=== PATIENT | female | born 1960 | race Two or more races ===

== ENCOUNTER 2024-06-19 06:49 | Day surgery (SDC) | payer BC, SELFPAY ==
[2024-06-18 11:31] VITALS: BMI 28.5
[2024-06-19 07:29] VITALS: BP 160/78; PULSE 91; RESP 18; TEMP 36.4; O2SAT 98
--- NOTE | 2024-06-19 07:41 | EXP.ANES.CKL ---
[facility] Disclaimer: The information contained in this section may have been updated after the patient was seen, as this information can be updated by other users. Medical History (Updated 06/19/24 @ 07:37 by Moraima Zendejas RN) H/O esophageal spasm Anxiety Stutter Fibromyalgia Surgical History (Updated 06/19/24 @ 07:34 by Moraima Zendejas RN) Hx laparoscopic cholecystectomy H/O spinal fusion H/O colonoscopy H/O lumpectomy History of bunionectomy History of esophagogastroduodenoscopy (EGD) Social History (Updated 06/19/24 @ 07:34 by Moraima Zendejas RN) Smoking Status: Never smoker alcohol intake: never substance use type: denies use current occupational status: employed Travel in the last 8 weeks: None [facility] Anesthesia Checklist Patient Identification Patient Identification: Arm Band, Family and Verbal (Name & ) Structural Data Admitted From: Home Planned Operative Procedure/s: EGD Consent for Planned Operative Procedure(s) Verified: Yes Verified Documents: Surgical Consent and History and Physical NPO Status Verified Time NPO: 21:00 Additional verifications Patient : No (post-menopausal) Anesthesia Reactions: No Cardiovascular Assessment Heart Sounds: S1 & S2 Pulse Rhythm: Irregular Peripheral Edema: No Airway Assessment Mallampati Score:: Class III C-Spine Mobility Assessed: Yes (FROM demonstarted) TMJ Mobility Assessed: Yes Dentition: Good Dentition (Nothing loose per pt.) Neurological Assessment Level of Consciousness: Awake, Alert, Appropriate and Follows Commands Hx Seizures: No Numbness or tingling in extremities: No Anesthesia Plan Anesthesia Risk discussed: Yes Anesthesia Plan: Verified ASA Class: III Anesthesia Type: MAC
[2024-06-19 08:05] VITALS: O2SAT 100
--- NOTE | 2024-06-19 08:09 | P.HP_ITS ---
History of Present Illness *Admission Date: 06/19/24 *Reason for visit:: Dyspepsia/esophageal spasm/dyskinesia *History of present illness: Mrs. Grewal is a 63-year-old female who is here for diagnostic upper endoscopy secondary to ongoing dyspepsia, esophageal dyskinesia with esophageal spasm. Her symptoms are alleviated with Iberogast and lorazepam. She has had some increase in her acid reflux recently which she attributes to NSAIDs.. The examination is deemed medically necessary for upper endoscopy. The patient has been seen, interviewed and examined prior to the procedure by both myself and the anesthesia provider. [facility] Disclaimer: The information contained in this section may have been updated after the patient was seen, as this information can be updated by other users. Medical History (Updated 06/19/24 @ 08:10 by Stephen Dover II, MD) H/O esophageal spasm Anxiety Stutter Fibromyalgia Surgical History (Updated 06/19/24 @ 07:34 by Moraima Zendejas RN) Hx laparoscopic cholecystectomy H/O spinal fusion H/O colonoscopy H/O lumpectomy History of bunionectomy History of esophagogastroduodenoscopy (EGD) Social History (Updated 06/19/24 @ 07:42 by Kathleen Ashley CRNA) Smoking Status: Never smoker alcohol intake: never substance use type: denies use current occupational status: employed Travel in the last 8 weeks: None Have you lived/traveled outside US in past 30 days?: No Contact w/someone who lives/traveled outside US past 30 days?: No Exposure to someone with infectious disease in past 14 days?: No Do you have a fever (greater than 100.4 F or 38 C)?: No Have you tested positive for COVID-19: No Exposed to someone with COVID-19 in past 14 days?: No Do you have a sore throat?: No Do you have a cough?: No Do you have any weakness?: No Do you have any diarrhea?: No Are you experiencing any unusual bleeding?: No Do you have any muscle aches/pain?: No Do you have any abdominal pain?: No Are you experiencing loss of taste or smell?: No Review of Systems Review of Systems Review of systems (narrative): Negative *Cardiovascular Comments: Negative *Gastrointestinal Comments: Negative *Genitourinary Comments: Negative *Musculoskeletal Comments: Negative *Neurologic Comments: Negative Meds Home Medications and Allergies Home Medications ?Medication ?Instructions ?Recorded ?Confirmed ?Type lorazepam 1 mg tablet 1 mg PO BID PRN Esophageal spasm 03/31/24 06/19/24 Rx #60 tabs aspirin 81 mg tablet,delayed 81 mg PO DAILY 05/22/24 06/19/24 History release (Adult Aspirin Regimen) azelastine 137 mcg (0.1 %) nasal 2 spray intranasal DAILY 05/22/24 06/19/24 History spray cyclobenzaprine 10 mg tablet 10 mg PO DAILY 05/22/24 06/19/24 History duloxetine 60 mg capsule,delayed 120 mg PO DAILY 05/22/24 06/19/24 History release glycopyrrolate 2 mg tablet 2 mg PO DAILY 05/22/24 06/19/24 History memantine 10 mg tablet 10 mg PO BID 05/22/24 06/19/24 History methylcellulose (with sugar) oral 1 tbsp PO DAILY 05/22/24 06/19/24 History powder (Citrucel (sucrose) oral powder) oxycodone-acetaminophen 7.5 mg-325 1 tab PO TID 05/22/24 06/19/24 History mg tablet tramadol 50 mg tablet 50 mg PO NEEDED PRN Pain 05/22/24 06/19/24 History trazodone 50 mg tablet 50 mg PO DAILY 05/22/24 06/19/24 History propranolol 10 mg tablet 10 mg PO NEEDED PRN stutter 06/19/24 06/19/24 History New Prescriptions to Start Prescriptions: Allergies Allergy/AdvReac Type Severity Reaction Status Date / Time No Known Allergies Allergy Verified 06/19/24 08:00 Exam Data for Last 24 hours Vital signs and Labs for Last 24 Hours: Temp Pulse Resp BP Pulse Ox O2 Del Method O2 Flow Rate 97.5 F L 91 H 18 160/78 H 98 Nasal Cannula 5 06/19/24 07:29 06/19/24 07:29 06/19/24 07:29 06/19/24 07:29 06/19/24 07:29 06/19/24 08:05 06/19/24 08:05 I & O for Last 24 hours: Intake & Output 06/16/24 06/17/24 06/18/24 06/19/24 23:59 23:59 23:59 23:59 Weight 164 lb *Routine HEENT Exam Head: Present normocephalic Eye: Present EOMI and PERRL ENT: Present mucous membranes moist *Routine Neck Exam Neck: Present supple *Routine Respiratory Exam Respiratory: Present CTA bilaterally *Routine Cardiovascular Exam Cardiovascular: Present RRR *Routine Abdominal Exam Abdominal: Present soft and normoactive bowel sounds; Absent tenderness *Routine Rectal Exam Rectal:: deferred *Routine Genitalia Exam Genitalia:: deferred *Routine Extremities Exam Extremities: Absent cyanosis, clubbing or edema *Routine Skin Exam Skin: Present warm; Absent rash *Routine Neurological Exam Neurological: Present alert and oriented X3 Assessment and Plan *Assessment and plan (1) Esophageal spasm: Status: Acute Category: Medical Code(s): K22.4 - Dyskinesia of esophagus (2) Esophageal dyskinesia: Status: Acute Category: Medical Code(s): K22.4 - Dyskinesia of esophagus (3) Epigastric pain: Status: Acute Category: Medical Code(s): R10.13 - Epigastric pain (4) Acid reflux: Status: Acute Category: Medical Code(s): K21.9 - Gastro-esophageal reflux disease without esophagitis (5) Functional dyspepsia: Status: Acute Category: Medical Code(s): K30 - Functional dyspepsia Plan A/P: 1. Epigastric pain with history of esophageal spasm/dyskinesia is the preprocedural diagnosis. The patient will be anesthetized/sedated using MAC se dation. The patient has been seen and examined. Cardiac and lung assessment prior to the examination is stable. Proceed with planned EGD
--- NOTE | 2024-06-19 08:11 | P.PCN_ITS ---
[facility] Procedure Note Date: 06/19/24 Time: 08:20 Procedure Note:: Upper Endoscopy Procedure Report: Esophagogastroduodenoscopy with cold biopsies and TTS balloon dilation Endoscopost: Stephen Dover II, MD Referring Physician: EVERETT Buck Date of Procedure: June 19, 2024 Equipment: Olympus GIF 190 standard upper endoscope Sedation: MAC sedation Indications: Mrs. Grewal is a 63-year-old female with a long history of esophageal spasm/esophageal dyskinesia. Her symptoms are alleviated with Iberogast and lorazepam. She does take the lorazepam a couple of times weekly. She has used FDgard and sucralfate as needed. The patient does report some increase in her reflux. She reports no bloating or belching. She states that her symptoms do not radiate to the back. She does report regular bowel function and Citrucel has improved bowel evacuation. She does take oxycodone and tramadol for her chronic fibromyalgia. She uses ibuprofen about once a week. She did have panendoscopy with me at [facility] 5 years ago. Procedure: Prior to the procedure, a history and physical exam was performed, and patient's medications and allergies were reviewed. The risks, benefits and alternatives of the sedation and procedure were discussed with the patient. All questions were answered and informed consent was obtained. The patient was brought to the procedure room. Patient identification and proposed procedure were verified by the physician and the nurse. The patient was placed in a left lateral decubitus position and the scope was passed under direct vision. Throughout the procedure, the patient's blood pressure, pulse, and oxygen saturations were m onitored continuously. The upper GI endoscopy was accomplished without difficulty. The patient tolerated the procedure well. Findings: The scope was passed directly into the upper esophagus and advanced to the third portion of the duodenum. The post bulbar duodenum and duodenal bulb were normal with normal mucosa and conniventes. The scope was withdrawn through a normal duodenal bulb and spastic pylorus into the stomach. There was linear reactive gastropathy of the antrum and some evident pylorospasm. Biopsies were taken from the antrum. The remainder of the body and fundus of the stomach were normal. Upon retroflexion there was no hiatal hernia. The scope was then withdrawn into the esophagus. There was no evidence of reflux esophagitis. There were tertiary contractions and evidence of mild esophageal dysmotility. There was no corrugation or stricturing. The entire esophagus was dilated to 60 [place]/20 mm with a TTS hydrostatic balloon. There was mild resistance at the c ricopharyngeus. The remainder of the esophageal mucosa was normal. Impression: 1. Nonerosive GERD with mild esophageal dysmotility and cricopharyngeal spasm 2. Mild linear reactive gastropathy with pylorospasm Plan: We will discuss additional treatment options. I would consider additional treatment with neuromodulation. Notable primarily was the pylorospasm. I would consider Botox injection into the pylorus if patient remains symptomatic.
[2024-06-19 08:24] VITALS: BP 108/70; PULSE 80; RESP 16; TEMP 36.4; O2SAT 95
[2024-06-19 08:34] VITALS: BP 110/73; PULSE 80; RESP 16; O2SAT 96
[2024-06-19 08:44] VITALS: BP 121/69; PULSE 78; RESP 16; O2SAT 95
[2024-06-19 09:04] VITALS: BP 118/72; PULSE 80; RESP 17; O2SAT 96
== END 2024-06-19 09:25 | disposition home or self-care (01) ==
PROVIDERS: PCP Nurse Practitioner Family; Visit Provider Internal Medicine Gastroenterology
PROC: 0DJ08ZZ Inspection of Upper Intestinal Tract, Via Natural or Artificial Opening Endoscopic (ICD-10-PCS; CPT 43239; principal; 2024-06-19 08:30)
DX: K22.4 Dyskinesia of esophagus (principal); K21.9 Gastro-esophageal reflux disease without esophagitis; K30 Functional dyspepsia; K31.3 Pylorospasm, not elsewhere classified; K31.9 Disease of stomach and duodenum, unspecified; J39.2 Other diseases of pharynx
CPT/HCPCS: 43239; 43249; C1726

== ENCOUNTER 2024-07-17 13:28 | Outpatient (CLI) | payer BC, SELFPAY ==
--- NOTE | 2024-07-17 13:36 | CT_ITS ---
FINAL REPORT TECHNIQUE: After the administration of intravenous contrast, axial images were obtained through the abdomen and pelvis by computed tomography. The study was performed with techniques to keep radiation dose as low as reasonably achievable, (ALARA). Individual dose reduction techniques using automated exposure control or adjustment of mA and/or kV according to the patient's size were employed. CLINICAL HISTORY: 1 week RLQ/LLQ pain/diarrhea FINDINGS: Abdomen: The lung bases are clear. The liver parenchyma is homogeneous. The gallbladder is absent. There is moderate intra and extrahepatic biliary ductal dilatation. The common duct measures up to 13 mm in diameter. The spleen, pancreas, adrenals and kidneys appear unremarkable. The aorta is normal in caliber. There is no free fluid or adenopathy. Pelvis: The appendix is normal. The uterus is present. There are calcified phleboliths in the floor of the pelvis. The urinary bladder is incompletely distended. There are small scattered diverticuli of the descending and sigmoid colon. There is prominent mucosa of the sigmoid colon without definite pericolonic inflammation, may be related to mild sigmoid diverticulitis. There is no free fluid or adenopathy. IMPRESSION: Distention of the common duct, probably related to prior cholecystectomy. No evident choledocholithiasis. Prominent mucosa of the sigmoid colon, may be related to mild sigmoid diverticulitis. Reviewed, Interpreted and Dictated by Chase Vargas MD Transcribed by Melany Urias Authenticated and [facility]
[2024-07-17 13:55] LABS: Blood Urea Nitrogen 12 mg/dl (7-17); Estimated Glomerular Filt Rate 124 ml/min (>60); GFR (African American) 150 ML/MIN (>60)
[2024-07-17] MEDS: IOPAMIDOL-370 (76%);100ML BOTTLE 75 ML IV (14:11)
[2024-07-17] MEDS: SODIUM CHLORIDE 0.9% 10ML SYR (RAD ONLY) 10 ML IV (14:11)
== END 2024-07-17 23:59 | disposition home or self-care (01) ==
LOC: RAD 13:30
PROVIDERS: PCP Nurse Practitioner Family; Visit Provider Nurse Practitioner Family
DX: R10.31 Right lower quadrant pain (principal); R10.32 Left lower quadrant pain; R19.7 Diarrhea, unspecified
CPT/HCPCS: 36415; 74177; 82565; 84520; Q9967

== ENCOUNTER 2024-07-22 06:42 | Outpatient (CLI) | payer BC, SELFPAY ==
[2024-07-22 07:07] LABS: Adenovirus F 40/41, stool Not Detected (NotDetected); Astrovirus Not Detected (NotDetected); Campylobacter Not Detected (NotDetected); Clostridium Difficile A/B, PCR Not Detected (NotDetected); Cryptosporidium Not Detected (NotDetected); Cyclospora Cayetanesis Not Detected (NotDetected); Entamoeba histolytica Not Detected (NotDetected); Enteroaggregative E coli Not Detected (NotDetected); Enteropathogenic E coli Not Detected (NotDetected); Enterotoxigenic E coli Not Detected (NotDetected); Giardia lamblia Not Detected (NotDetected); Norovirus Not Detected (NotDetected); Plesimonas Shigalloides, PCR Not Detected (NotDetected); Rotavirus A Not Detected (NotDetected); Salmonella, PCR Not Detected (NotDetected); Sapovirus Not Detected (NotDetected); Shiga-like toxin E coli Not Detected (NotDetected); Shigella Enterovasive E coli Not Detected (NotDetected); Vibrio Cholerae Not Detected (NotDetected); Vibrio, PCR Not Detected (NotDetected); Yersinia Entercolitica, PCR Not Detected (NotDetected)
== END 2024-07-22 23:59 | disposition home or self-care (01) ==
LOC: LAB 06:44
PROVIDERS: PCP Nurse Practitioner Family; Visit Provider Internal Medicine Gastroenterology
DX: R19.7 Diarrhea, unspecified (principal)
CPT/HCPCS: 87506

== ENCOUNTER 2024-12-18 06:12 | Day surgery (SDC) | payer MEDICARE, SELFPAY ==
[2024-12-16 15:52] VITALS: BMI 25.7
[2024-12-18 06:34] VITALS: BP 113/68; PULSE 76; RESP 18; TEMP 36.5; O2SAT 98
[2024-12-18] MEDS: LACTATED RINGERS 1000ML 1,000 ML 50 ML IV (06:51)
--- NOTE | 2024-12-18 07:05 | EXP.ANES.CKL ---
[facility] Disclaimer: The information contained in this section may have been updated after the patient was seen, as this information can be updated by other users. Medical History History of diverticulitis H/O esophageal spasm Anxiety Stutter Fibromyalgia Surgical History History of tonsillectomy Hx laparoscopic cholecystectomy H/O spinal fusion H/O colonoscopy H/O lumpectomy History of bunionectomy History of esophagogastroduodenoscopy (EGD) Family History Other Family history of myocardial infarction Social History Smoking Status: Never smoker alcohol intake: never substance use type: denies use current occupational status: retired Travel in the last 8 weeks?: None caffeine: Yes Have you lived/traveled outside US in past 30 days?: Yes Contact w/someone who lives/traveled outside US past 30 days?: No Exposure to someone with infectious disease in past 14 days?: No Do you have a fever (greater than 100.4 F or 38 C)?: No Have you tested positive for COVID-19?: No Exposed to someone with COVID-19 in past 14 days?: No Do you have a sore throat?: No Do you have a cough?: No Do you have any weakness?: No Are you experiencing any nausea/vomitting?: No Do you have any diarrhea?: No Are you experiencing any unusual bleeding?: No Do you have any muscle aches/pain?: No Do you have any abdominal pain?: No Are you experiencing loss of taste or smell?: No [facility] Anesthesia Checklist Patient Identification Patient Identification: Arm Band and Verbal (Name & ) Structural Data Admitted From: Home Planned Operative Procedure/s: colonscopy Consent for Planned Operative Procedure(s) Verified: Yes Verified Documents: Surgical Consent and History and Physical NPO Status Verified Time NPO: 00:00 Additional verifications Anesthesia Reactions: No Airway Assessment Mallampati Score:: Class II Dentition: Good Dentition Neurological Assessment Level of Consciousness: Awake, Alert and Appropriate Hx Seizures: No Numbness or tingling in extremities: No Anesthesia Plan Anesthesia Risk discussed: Yes Anesthesia Plan: Verified ASA Class: II Anesthesia Type: MAC
--- NOTE | 2024-12-18 07:20 | EXP.HP ---
History of Present Illness *Admission Date: 12/18/24 *Reason for visit:: Screening colonoscopy *History of present illness: Mrs. Grewal is a 64-year-old female who is here for screening colonoscopy. Her last colonoscopy was more than a decade ago. The examination is deemed medically necessary for screening colonoscopy. The patient has been seen, interviewed and examined prior to the procedure by both myself and the anesthesia provider. [facility] Disclaimer: The information contained in this section may have been updated after the patient was seen, as this information can be updated by other users. Medical History History of diverticulitis H/O esophageal spasm Anxiety Stutter Fibromyalgia Surgical History History of tonsillectomy Hx laparoscopic cholecystectomy H/O spinal fusion H/O colonoscopy H/O lumpectomy History of bunionectomy History of esophagogastroduodenoscopy (EGD) Family History Other Family history of myocardial infarction Social History Smoking Status: Never smoker alcohol intake: never substance use type: denies use current occupational status: retired Travel in the last 8 weeks?: None caffeine: Yes Have you lived/traveled outside US in past 30 days?: Yes Contact w/someone who lives/traveled outside US past 30 days?: No Exposure to someone with infectious disease in past 14 days?: No Do you have a fever (greater than 100.4 F or 38 C)?: No Have you tested positive for COVID-19?: No Exposed to someone with COVID-19 in past 14 days?: No Do you have a sore throat?: No Do you have a cough?: No Do you have any weakness?: No Are you experiencing any nausea/vomitting?: No Do you have any diarrhea?: No Are you experiencing any unusual bleeding?: No Do you have any muscle aches/pain?: No Do you have any abdominal pain?: No Are you experiencing loss of taste or smell?: No Review of Systems Review of Systems Review of systems (narrative): Negative *Cardiovascular Comments: Negative *Gastrointestinal Comments: Negative *Genitourinary Comments: Negative *Musculoskeletal Comments: Negative *Neurologic Comments: Negative Meds Home Medications and Allergies Home Medications ?Medication ?Instructions ?Recorded ?Confirmed ?Type aspirin 81 mg tablet,delayed 81 mg PO DAILY 05/22/24 12/18/24 History release (Adult Aspirin Regimen) azelastine 137 mcg (0.1 %) nasal 2 spray intranasal DAILY 05/22/24 12/18/24 History spray duloxetine 60 mg capsule,delayed 120 mg PO DAILY 05/22/24 12/18/24 History release oxycodone-acetaminophen 7.5 mg-325 1 tab PO TID 05/22/24 12/18/24 History mg tablet tramadol 50 mg tablet 50 mg PO NEEDED PRN Pain 05/22/24 12/18/24 History trazodone 50 mg tablet 50 mg PO DAILY 05/22/24 12/18/24 History buspirone 10 mg tablet 10 mg PO BID #60 tabs 06/19/24 12/18/24 Rx propranolol 10 mg tablet 10 mg PO NEEDED PRN stutter 06/19/24 12/18/24 History dicyclomine 10 mg capsule 10 mg PO BID #60 caps 07/23/24 12/18/24 Rx calcium polycarbophil 625 mg 1,250 mg PO DAILY 08/14/24 12/18/24 History tablet (FiberCon) omeprazole 20 mg capsule,delayed 20 mg PO DAILY #90 caps 08/14/24 12/18/24 Rx release Bifidobacterium infantis 4 mg 4 mg PO HS 09/22/24 12/18/24 History capsule (Align (B.infantis)) lorazepam 1 mg tablet 1 mg PO BID PRN Abdominal 11/17/24 12/18/24 Rx pain/chest pain #60 tabs sodium,potassium,mag sulfates 17.5 See Rx Instructions PO .COMPLEX 12/01/24 12/18/24 Rx gram-3.13 gram-1.6 gram oral soln #354 mL (Suprep Bowel Prep Kit) New Prescriptions to Start Prescriptions: Allergies Allergy/AdvReac Type Severity Reaction Status Date / Time No Known Allergies Allergy Verified 12/18/24 06:30 Exam Data for Last 24 hours Vital signs and Labs for Last 24 Hours: Temp Pulse Resp BP Pulse Ox O2 Del Method 97.7 F 76 18 113/68 98 Room Air 12/18/24 06:34 12/18/24 06:34 12/18/24 06:34 12/18/24 06:34 12/18/24 06:34 12/18/24 06:34 I & O for Last 24 hours: Intake & Output 12/15/24 12/16/24 12/17/24 12/18/24 23:59 23:59 23:59 23:59 Weight 150 lb *Routine HEENT Exam Head: Present normocephalic Eye: Present EOMI and PERRL ENT: Present mucous membranes moist *Routine Neck Exam Neck: Present supple *Routine Respiratory Exam Respiratory: Present CTA bilaterally *Routine Cardiovascular Exam Cardiovascular: Present RRR *Routine Abdominal Exam Abdominal: Present soft and normoactive bowel sounds; Absent tenderness *Routine Rectal Exam Rectal:: deferred *Routine Genitalia Exam Genitalia:: deferred *Routine Extremities Exam Extremities: Absent cyanosis, clubbing or edema *Routine Skin Exam Skin: Present warm; Absent rash *Routine Neurological Exam Neurological: Present alert and oriented X3 Assessment and Plan *Assessment and plan (1) Screening for colon cancer: Status: Acute Category: Medical Code(s): Z12.11 - Encounter for screening for malignant neoplasm of colon Plan A/P: 1. Screening for colon cancer is the preprocedural diagnosis. The patient will be anesthetized/sedated using MAC sedation. The patient has been seen and examined. Cardiac and lung assessment prior to the examination is stable. Proceed with planned screening colonoscopy.
--- NOTE | 2024-12-18 07:25 | P.PCN_ITS ---
[facility] Procedure Note Date: 12/18/24 Time: 07:45 Procedure Note:: Colonoscopy Procedure Report: Colonoscopy Endoscopist: Stephen Dover II, MD Referring physician: Pauline Haynes MD, [address] [facility], [place] [address] Date of Procedure: December 18, 2024 Equipment: Olympus 190 variable stiffness pediatric colonoscope Sedation: MAC sedation Indication: Mrs. Grewal is a 64-year-old female who is here for follow-up screening/surveillance colonoscopy. The patient does state that she had a colonoscopy years ago but there is no record of this at [facility] and I think it was done elsewhere with me in [place] or [place]. She reports no abdominal pain, weight loss, change in her bowel habits or rectal bleeding. She does have some functional dyspepsia. She did have acute diverticulitis in August 2024. This was treated with Cipro and Flagyl. The patient has been on dietary measures, probiotic (Align) and FiberCon. She reports no family history of colon cancer. Procedure: Prior to the procedure, a history and physical exam was performed, and patient's medications and allergies were reviewed. The risks, benefits and alternatives of the sedation and procedure were discussed with the patient. All questions were answered and informed consent was obtained. The patient was brought to the procedure room. Patient identification and proposed procedure were verified by the physician and the nurse. The patient was placed in a left lateral decubitus position and the scope was passed under direct vision. Throughout the procedure, the patient's blood pressure, pulse, and oxygen saturations were monitored continuously. The colonoscopy was accomplished without difficulty. The patient tolerated the procedure well. Findings: On digital rectal examination there was normal rectal tone. There were no external hemorrhoids. The colonoscope was introduced through the anal canal to the rectum and advanced to the cecum. The ileocecal valve and appendiceal orifice were identified. The scope was advanced a short distance into the ileum which appeared grossly normal. The scope was then withdrawn into the colon. The cecum, ascending and transverse colon and mucosa were grossly normal. There were scattered diverticuli throughout the descending and sigmoid colon (LEFT colon). The rectum itself was normal. Upon retroflexion within the rectum there were grade 1-2 internal hemorrhoids. The preparation was excellent throughout with [place] Preparation Score of 9. The cecal time was 10 minutes. Impression: 1. Left-sided diverticulosis 2. Grade 1-2 internal hemorrhoids Plan: The patient will not require surveillance colonoscopy again for 10 years by ACS guidelines. I would continue bulking fiber supplementation and dietary measures. I would avoid NSAIDs (with risk of recurrent diverticulitis).
[2024-12-18 07:43] VITALS: BP 93/44; PULSE 82; RESP 16; TEMP 36.2; O2SAT 97
[2024-12-18 07:53] VITALS: BP 113/51; PULSE 85; RESP 16; O2SAT 97
[2024-12-18 08:03] VITALS: BP 121/76; PULSE 74; RESP 16; O2SAT 97
[2024-12-18 08:13] VITALS: BP 144/72; PULSE 75; RESP 16; TEMP 36.2; O2SAT 97
== END 2024-12-18 08:30 | disposition home or self-care (01) ==
PROVIDERS: PCP Family Medicine; Visit Provider Internal Medicine Gastroenterology
PROC: 0DJD8ZZ Inspection of Lower Intestinal Tract, Via Natural or Artificial Opening Endoscopic (ICD-10-PCS; CPT 45378; principal; 2024-12-18 07:30)
DX: Z12.11 Encounter for screening for malignant neoplasm of colon (principal); K57.30 Diverticulosis of large intestine without perforation or abscess without bleeding; K64.0 First degree hemorrhoids; F41.9 Anxiety disorder, unspecified; K64.1 Second degree hemorrhoids; M79.7 Fibromyalgia; Z87.19 Personal history of other diseases of the digestive system; Z90.49 Acquired absence of other specified parts of digestive tract; Z98.890 Other specified postprocedural states; Z79.899 Other long term (current) drug therapy
CPT/HCPCS: G0121; J2003; J2704; J7120

== ENCOUNTER 2025-05-29 07:29 | Outpatient (CLI) | payer MEDICARE, SELFPAY ==
--- OUTSIDE RECORDS SUMMARY | 2025-04-06 11:00 | XMS_ITS | Encounter Summary ---
[facility] Address [address] [place] [address] Care Team Providers Care Irrigator Overhead Name Role Phone Pauline Haynes DO Primary Care Provider [phone] Reason for Referral * Diagnostic Imaging (Routine) - Authorized Specialty Diagnoses / Procedures Referred By Contac t Referred To Contact Diagnoses Screening for osteoporosis Postmenopausal Procedures DEXA Bone Density Axial Pauline Haynes DO [address] [place] [address] Phone: tel: fax: [facility] [address] [place] [id number] Phone: tel: fax: Referral ID Status Reason Start Date Expiration Date V isits Requested Visits Authorized [id number] Authorized 04/06/2025 07/06/2026 1 1 Reason for Visit * Reason Comments Welcome To Medicare Encounter Details Date Type Department Care Team (Late st Contact Info) Description 04/06/2025 12:00 PM EDT Office Visit [facility] [address] [place] [id number] Pauline Haynes DO [address] [place] [address] Medicare welcome exam (Primary Dx); Pap smear for cervical cancer screening; Fibromyalgia; Postmenopausal; Screening for osteoporosis; Vitamin D deficiency; Primary insomnia Social History Tobacco Use Types Packs/Day Years Used Date Smoking Tobacco: Never Smokeless Tobacco: Never Alcohol Use Standard Drinks/Week Comments Never 0 (1 standard drink = 0.6 oz pur e alcohol) PHQ-2 Answer Date Recorded Patient Health Questionnaire-2 Score 1 04/06/2025 Comments No Sex and Gender Information Value Date Recorded Sex Assigned at Female 12/29/2024 12:44 PM EDT Legal Sex Female 1:45 PM EDT Gender Identity Not on file Sexual Orientation Straight 12/29/2024 12 :44 PM EDT documented as of this encounter Last Filed Vital Signs Vital Sign Reading Time Taken Comments Blood Pressure 148/82 04/06/2025 11:52 AM EDT Pulse 96 04/06/2025 11:52 AM EDT Temperature - - Respiratory Rate 16 04/06/2025 11:52 AM EDT Oxygen Saturation - - Inhaled Oxygen Concentration - - Weight 66.2 kg (146 lb) 04/06/2025 11:52 AM EDT Height 160.4 cm (5' 3.15 ) 04/06/2025 11:52 AM E DT Body Mass Index 25.74 04/06/2025 11:52 AM EDT documented in this encounter Functional Status * PHQ-2/PHQ-9: Depression Screening Question Answer Date of Assessment Author Little interest or pleasure in doing things Several days 04/06/2025 11:58 AM EDT Gary Shine MA Feeling down, depressed, or hopeless Not at all 04/06/2025 11:58 AM EDT Malachi Shine MA Patient Health Questionnaire-2 Score 1 04/06/2025 11:58 AM EDT Gary Shine MA How difficult have these problems made it for you to do your work, take care of things at home, or get along with other people? Not difficult at all 04/06/2025 11:58 AM EDT Gary Shine MA documented as of this encounter Patient Instructions * Patient Instructions* Pauline Haynes DO - 04/06/2025 12:00 PM EDT Medicare Wellness Personal Prevention Plan of Service Date of Office Visit: Encounter Provider: Pauline Haynes DO Place of Service: [facility] Patient Name: Lupe Grewal : 1960 As part of the Medicare Wellness portion of your visit today, we are providing you with this personalized preventive plan of services (PPPS). This plan is based upon recommendations of the [place] Preventive Services Task Force (USPSTF) and the Advisory Committee on Immunization Practices (ACIP). This lists the preventive care services that should be considered, and provides dates of when you are due. Items listed as completed are up-to-date and do not require any further intervention. Health Maintenance Topic Date Due DXA SCAN Never done INFLUENZA VACCINE 01/09/2025 COVID-19 Vaccine (5 - Mixed Product risk season) 2025 LIPID PANEL 01/12/2026 MAMMOGRAM 03/24/2026 ANNUAL WELLNESS VISIT 04/06/2026 TDAP/TD VACCINES (2 - Td or Tdap) 01/01/2034 COLORECTAL CANCER SCREENING 01/05/2035 HEPATITIS C SCREENING Completed Pneumococcal Vaccine 50+ Completed ZOSTER VACCINE Completed No orders of the defined types were placed in this encounter. No follow-ups on file. * Attachments The following attachments cannot be sent through Care Everywhere. * Preventing Too Much Weight Gain in Adults ([place]) documented in this encounter Progress Notes * Pauline Haynes DO - 04/06/2025 12:00 PM EDT Images from the original note were not included. Subjective The ABCs of the Annual Wellness Visit Medicare Wellness Visit Lupe Grewla is a 64 y.o. patient who presents for a Medicare Wellness Visit. The following portions of the patient's history were reviewed and updated as appropriate: allergies, current medications, past family history, past medical history, past social history, past surgical history, and problem list. Compared to one year ago, the patient's physical health is better. Compared to one year ago, the patient's mental health is better. Recent Hospitalizations: She was not admitted to the hospital during the last year. Current Medical Providers: Patient Care Team: Pauline Haynes DO as PCP - General (Family Medicine) Jean Carlos Posada MD as Referring Physician (Anesthesiology) Kinsey, Janel Mcallister PA-C as Consulting Physician (Physician Sales Trader) Outpatient Medications Prior to Visit Medication Sig Dispense Refill Azelastine-Fluticasone 137-50 MCG/ACT suspension 1 spray by Each Nare route 2 (Two) Times a Day. 23g 0 busPIRone (BUSPAR) 10 MG tablet Take 1 tablet by mouth 2 (Two) Times a Day. cyclobenzaprine (FLEXERIL) 10 MG tablet dicyclomine (BENTYL) 10 MG capsule Take 1 capsule by mouth As Needed. donepezil (ARICEPT) 5 MG tablet Take 1 tablet by mouth Every Night. 90 tablet 1 DULoxetine (CYMBALTA) 60 MG capsule Take 1 capsule by mouth 2 (Two) Times a Day. 60 capsule 2 glycopyrrolate (ROBINUL) 2 MG tablet Take 1 tablet by mouth As Needed. LORazepam (ATIVAN) 1 MG tablet Take 1 tablet by mouth As Needed for Seizures. Misc Natural Products (IBEROGAST PO) Take 1 capsule by mouth 2 (Two) Times a Day. naloxone (Narcan) 4 MG/0.1ML nasal spray Administer 1 spray into the nostril(s) as directed by provider As Needed. oxyCODONE-acetaminophen (PERCOCET) 7.5-325 MG per tablet Take 1 tablet by mouth Every 6 (Six) HoursAs Needed. Probiotic Product (ALIGN PO) Take 1 capsule by mouth Daily. Progesterone (PROMETRIUM) 200 MG capsule Take 1 capsule by mouth Daily. propranolol (INDERAL) 10 MG tablet traMADol (ULTRAM) 50 MG tablet traZODone (DESYREL) 50 MG tablet Hormone Cream Base cream Apply 0.1 to 0.2 mL to clitoris prn intercourse (Patient not taking: Reported on 04/06/2025) 1 g 11 meloxicam (MOBIC) 15 MG tablet (Patient not taking: Reported on 04/06/2025) methylPREDNISolone (MEDROL) 4 MG dose pack Take as directed on package instructions. (Patient not taking: Reported on 04/06/2025) 21 tablet 0 No facility-administered medications prior to visit. Opioid medication/s are on active medication list. and I have evaluated her active treatment plan and pain score trends (see table). Vitals: 04/06/25 1152 PainSc: 3 PainLoc: Generalized I have reviewed the chart for potential of high risk medication and harmful drug interactions in the elderly. Aspirin is not on active medication list. Aspirin use is not indicated based on review of current medical condition/s. Risk of harm outweighs potential benefits. . There is no problem list on file for this patient. Advance Care Planning Advance Directive is not on file. ACP discussion was held with the patient during this visit. Patient has an advance directive (not in EMR), copy requested. Objective Vitals: 04/06/25 1152 BP: 148/82 Pulse: 96 Resp: 16 Weight: 66.2 kg (146 lb) Height: 160.4 cm (63.15 ) PainSc: 3 PainLoc: Generalized Estimated body mass index is 25.74 kg/m?? as calculated from the following: Height as of this encounter: 160.4 cm (63.15 ). Weight as of this encounter: 66.2 kg (146 lb). BMI is >= 25 and <30. (Overweight) The following options were offered after discussion;: information on healthy weight added to patient's after visit summary Gait and Balance Evaluation: Normal Does the patient have evidence of cognitive impairment? No Lab Results Component Value Date CHLPL 172 01/12/2025 TRIG 76 01/12/2025 HDL 52 01/12/2025 LDL 106 (H) 01/12/2025 VLDL 14 01/12/2025 HGBA1C 5.70 (H) 01/12/2025 Health Risk Assessment Smoking Status: Social History Tobacco Use Smoking Status Never Smokeless Tobacco Never Alcohol Consumption: Social History Substance and Sexual Activity Alcohol Use Never Fall Risk Screen STEADI Fall Risk Assessment was completed, and patient is at LOW risk for falls.Assessment completed on:04/06/2025 Depression Screening Little interest or pleasure in doing things? Several days Feeling down, depressed, or hopeless? Not at all PHQ-2 Total Score 1 Health Habits and Functional and Cognitive Screenin04/06/2025 11:56 AM Functional & Cognitive Status Do you have difficulty preparing food and eating? No Do you have difficulty bathing yourself, getting dressed or grooming yourself? No Do you have difficulty using the toilet? No Do you have difficulty moving around from place to place? No Do you have trouble with steps or getting out of a bed or a chair? Yes Current Diet Well Balanced Diet Dental Exam Up to date Eye Exam Up to date Exercise (times per week) 4 times per week Current Exercises Include Walking;Weightlifting Do you need help using the phone? No Are you deaf or do you have serious difficulty hearing? No Do you need help to go to places out of walking distance? No Do you need help shopping? No Do you need help preparing meals? No Do you need help with housework? Yes Do you need help with laundry? Yes Do you need help taking your medications? No Do you need help managing money? No Do you ever drive or ride in a car without wearing a seat belt? No Have you felt unusual fatigue (could be tiredness), stress, anger or loneliness in the last month? No Who do you live with? Spouse If you need help, do you have trouble finding someone available to you? No Have you been bothered in the last four weeks by sexual problems? No Do you have difficulty concentrating, remembering or making decisions? Yes Visual Acuity: Vision Screening Right eye Left eye Both eyes Without correction 20/20 20/20 20/15 With correction Age-appropriate Screening Schedule: Refer to the list below for future screening recommendations based on patient's age, sex and/or medical conditions. Orders for these recommended tests are listed in the plan section. The patient has been provided with a written plan. Health Maintenance List Health Maintenance Topic Date Due DXA SCAN Never done COVID-19 Vaccine (5 - Mixed Product risk 2023- season) 09/29/2025 LIPID PANEL 01/12/2026 MAMMOGRAM 03/24/2026 ANNUAL WELLNESS VISIT 04/06/2026 TDAP/TD VACCINES (2 - Td or Tdap) 01/01/2034 COLORECTAL CANCER SCREENING 01/05/2035 HEPATITIS C SCREENING Completed INFLUENZA VACCINE Completed Pneumococcal Vaccine 50+ Completed ZOSTER VACCINE Completed CMS Preventative Services Quick Reference Risk Factors Identified During Encounter Chronic Pain: Cont. Care with pain management. The above risks/problems have been discussed with the patient. Pertinent information has been shared with the patient in the After Visit Summary. An After Visit Summary and PPPS were made available to the patient. Follow Up: Next Medicare Wellness visit to be scheduled in 1 year. Additional E&M Note during same encounter follows: Patient has additional, significant, and separately identifiable condition(s)/problem(s) that require work above and beyond the Medicare Wellness Visit Chief Complaint Welcome To Medicare Subjective HPI Lupe is also being seen today for additional medical problem/s. The patient presents for a Medicare wellness exam. She has been experiencing excessive sweating during sleep. She reports not having undergone a Pap smear in several years and has never had a bone density test. She has received her influenza and COVID-19 vaccines at [facility] and is considering the RSV vaccine. She has a living will, advance directive, and power of civil rights attorney in place. She reports no falls inthe past year but notes unsteadiness when waking up or during pain flare-ups. She does not require a cane for mobility. She has been approved for disability and is seeking a placard. She is planning a 3-week trip to [place] in October 2025 and would like to have Zofran on hand. She is curious about a new non-opioid pain medication she saw on television as she would like to discontinue opioids but finds them necessary for daily functioning. She is not prone to addiction. She has been taking tpzh-fxi-zuiljom vitamin D but is unsure of its effectiveness. She has previously taken vitamin D 50,000 IU weekly. She is under the care of [facility] for memory issues and mild arterial hardening. She takes aspirin 81 mg daily. She has no history of high cholesterol or smoking. She has been engaging in physical activities such as walking, yoga, and weightlifting since her long-term in 08/2024. She has been using Medrol Dosepak during fibro flare-ups and is requesting a refill. She has meloxicam on hand but does not take it due to diverticulitis. She uses hormone pellets and takes progesterone at night. Occupation: Retired Objective Vital Signs: BP 148/82 Pulse 96 Resp 16 Ht 160.4 cm (63.15 ) Wt 66.2 kg (146 lb) BMI 25.74 kg/m?? Physical Exam Vitals and nursing note reviewed. Constitutional: Appearance: Normal appearance. HENT: Head: Normocephalic. Eyes: Conjunctiva/sclera: Conjunctivae normal. Cardiovascular: Rate and Rhythm: Normal rate and regular rhythm. Heart sounds: Normal heart sounds. Pulmonary: Effort: Pulmonary effort is normal. No respiratory distress. Breath sounds: Normal breath sounds. Chest: Breasts: Right: Normal. No inverted nipple, mass, nipple discharge, skin change or tenderness. Left: Normal. No inverted nipple, mass, nipple discharge, skin change or tenderness. Abdominal: Palpations: Abdomen is soft. Tenderness: There is no abdominal tenderness. Genitourinary: General: Normal vulva. Labia: Right: No lesion. Left: No lesion. Vagina: Normal. Cervix: Normal. Uterus: Normal. Adnexa: Right adnexa normal and left adnexa normal. Right: No tenderness. Left: No tenderness. Musculoskeletal: Cervical back: Neck supple. Lymphadenopathy: Cervical: No cervical adenopathy. Skin: General: Skin is warm and dry. Neurological: Mental Status: She is alert and oriented to person, place, and time. Psychiatric: Mood and Affect: Mood normal. Behavior: Behavior normal. Results Assessment and Plan Diagnoses and all orders for this visit: 1. Medicare welcome exam (Primary) 2. Pap smear for cervical cancer screening - LIQUID-BASED PAP SMEAR, [facility] ([facility]) 3. Fibromyalgia - methylPREDNISolone (MEDROL) 4 MG dose pack; Take as directed on package instructions. Dispense: 21 tablet; Refill: 0 4. Postmenopausal - DEXA Bone Density Axial; Future 5. Screening for osteoporosis - DEXA Bone Density Axial; Future 6. Vitamin D deficiency - vitamin D (ERGOCALCIFEROL) 1.25 MG (21908 UT) capsule capsule; Take 1 capsule by mouth 1 (One) Time Per Week. Dispense: 12 capsule; Refill: 0 7. Primary insomnia Other orders - ondansetron ODT (ZOFRAN-ODT) 4 MG disintegrating tablet; Place 1 tablet on the tongue Every 8 (Eight) Hours As Needed for Nausea or Vomiting. Dispense: 25 tablet; Refill: 0 1. Medicare wellness examination: - Pap smear completed today. - She has been engaging in physical activities such as walking, yoga, and weightlifting since her long-term in 08/2024. - A vision screening will be conducted today. A bone density test has been ordered at [facility]. A refill of her Medrol Dosepak will be provided. A prescription for Zofran will be sent tot pharmacy. She is advised to continue her daily vitamin D supplement. A lab order for vitamin D level will be placed, and she is to return in 3 months for re-evaluation. 2. Fibromyalgia: - She experiences flare-ups that can hinder her daily activities and cause unsteadiness, particularly upon waking. - She is advised to consider physical therapy if her balance issues worsen, as it can help with core strengthening and gait improvement. Medicare welcome exam Pap smear for cervical cancer screening Orders: LIQUID-BASED PAP SMEAR, [facility] ([facility]) Fibromyalgia Orders: methylPREDNISolone (MEDROL) 4 MG dose pack; Take as directed on package instructions. Postmenopausal Orders: DEXA Bone Density Axial; Future Screening for osteoporosis Orders: DEXA Bone Density Axial; Future Vitamin D deficiency Orders: vitamin D (ERGOCALCIFEROL) 1.25 MG (70836 UT) capsule capsule; Take 1 capsule by mouth 1 (One) TimePer Week. Primary insomnia Follow Up No follow-ups on file. Patient was given instructions and counseling regarding her condition or for health maintenance advice. Please see specific information pulled into the AVS if appropriate. Patient or patient territory representative verbalized consent for the use of Ambient Listening during the visit with Pauline Haynes DO for chart documentation. 04/06/2025 12:37 EDT documented in this encounter Plan of Treatment Not on file documented as of this encounter Procedures Procedure Name Priority Date/Time Associated Diagnosis Comments LIQUID-BASED PAP SMEAR, [facility] ([facility]) Routine 04/06/2025 4:01 PM EDT Pap smear for cervical cancer screening documented in this encounter Results * DEXA Bone Density Axial (05/12/2025) Anatomical Region Laterality Modality Wrist, Hip, L-spine N/A Radiographic Imaging us Pauline Haynes DO IMG DXA ORDERABLES Final Re sult * LIQUID-BASED PAP SMEAR, [facility] ([facility]) (04/06/2025 4:01 PM EDT) Reference Lab Report FINAL RECREATION ASSISTANT CYTOLOGY REPORT ---- DIAGNOSIS: Negative for intraepithelial lesion or malignancy Multiple factors can influence accuracy of Pap tests; therefore, screening at regular intervals is necessary for early cancer detection. C-Comments Benign cellular changes associated with atrophy are present. ---- Adequacy SATISFACTORY FOR EVALUATION Transformation zone is present. Source CERVICAL/ENDOCERVI ZAIRA LMP None provided CLINICAL HISTORY: Routine Postmenopausal The pap smear is a screening test with limited sensitivity, and false negative tests results can occur. ThinPrep Pap imagined by [employer] (AI assisted system). Screened by MARCELINO BLAND (ASCP) 04/08/2025 11:38 AM EDT [facility] ThinPrep Vial Cervix uteri structure / Unknown Collection / Unknown 04/06/2025 4:01 PM EDT 04/06/2025 4:02 PM EDT Pauline Haynes DO PATHOLOGY/CYTOLOGY ORDERABL ES Final Result [facility]
[address] [place] [address], documented in this encounter Visit Diagnoses Diagnosis Medicare welcome exam- Primary Pap smear for cervical cancer screening Screening for malignant neoplasm of the cervix Fibromyalgia Unspecified myalgia and myositis Postmenopausal Asymptomatic postmenopausal status (age-related) (natural) Screening for osteoporosis Special screening for osteoporosis Vitamin D deficiency Primary insomnia Persistent disorder of initiating or maintaining sleep documented in this encounter Care Teams Irrigator Overhead Relationship Specialty Start Date End Date Pauline Haynes DO [place] [address] PCP - General Family Medicine 01/05/25 documented as of this encounter
--- OUTSIDE RECORDS SUMMARY | 2025-05-29 07:31 | XMS_ITS | Encounter Summary ---
Author Organization Healthcare Address [address] [place] [address] Care Team Providers Care Rn First Assistant Name Role Phone Marivel Colón LPN Unavailable Unavailabl e Pcp, No Primary Care Provider Unavailabl e Reason for Visit * Reason Comments Med Refill Encounter Details Date Type Department Care Team (Late st Contact Info) Description 02/23/2025 Refill [facility] [address] [place] [address] Nae Maldonado, TRANSMISSION INSPECTOR [address] [place] [address] Insomnia, unspecified type Social History Tobacco Use Types Packs/Day Years Used Date Smoking Tobacco: Never Smokeless Tobacco: Never Alcohol Use Standard Drinks/Week Comments Never 0 (1 standard drink = 0.6 oz pur e alcohol) Social Connection and Isolation Panel Answer Date Recorded In a typical week, how many times do you talk on the phone with family, friends, or neighbors? More than three times a week 01/02/2024 How often do you get togethe r with friends or relatives? More than three times a week 01/02/2024 How often do you attend chur ch or episcopalian services? Never 01/02/2024 Do you belong to any clubs o r organizations such as gnosticist groups, unions, fraternal or athletic groups, or school groups? No 01/02/2024 How often do you attend meet ings of the clubs or organizations you belong to? Never 01/02/2024 Are you , , di vorced, , never , or living with a partner? 01/02/2024 AUDIT-C Answer Date Recorded Q1: How often do you have a drink containing alc ohol? Monthly or less 01/02/2024 Q2: How many drinks containi ng alcohol do you have on a typical day when you are drinking? 1 or 2 01/02/2024 Q3: How often do you have si x or more drinks on one occasion? Less than monthly 01/02/2024 Overall Financial Resource Strain (CARDIA) Answe r Date Recorded How hard is it for you to pa y for the very basics like food, housing, medical care, and heating? Not hard at all 01/02/2024 PHQ-2 Answer Date Recorded Patient Health Questionnaire-2 Score 0 01/02/2024 Humiliation, Afraid, Rape, and Kick questionnair e Answer Date Recorded Within the last year, have y ou been afraid of your partner or ex-partner? No 12/29/2024 Within the last year, have y ou been humiliated or emotionally abused in other ways by your partner or ex-partner? No Within the last year, have y ou been kicked, hit, slapped, or otherwise physically hurt by your partner or ex-partner? No 12/29/2024 Within the last year, have y ou been raped or forced to have any kind of sexual activity by your partner or ex-partner? No 12/29/2024 Social Connection and Isolation Panel Answer Date Recorded In a typical week, how many times do you talk on the phone with family, friends, or neighbors? More than three times a week 12/29/2024 How often do you get togethe r with friends or relatives? Once a week 12/29/2024 How often do you attend chur or episcopalian services? Never 12/29/2024 Do you belong to any clubs o r organizations such as gnosticist groups, unions, fraternal or athletic groups, or school groups? No 12/29/2024 How often do you attend meet ings of the clubs or organizations you belong to? Never 12/29/2024 Are you , , di vorced, , never , or living with a partner? 12/29/2024 AUDIT-C Answer Date Recorded Q1: How often do you have a drink containing alcohol? Never 12/29/2024 Q2: How many drinks containi ng alcohol do you have on a typical day when you are drinking? Patient does not drink Q3: How often do you have si x or more drinks on one occasion? Never 12/29/2024 [facility] - Occupational Stress Questionnaire Answer Date Recorded Do you feel stress - tense, restless, nervous, or anxious, or unable to sleep at night because your mind is troubled all the time - these days? Not at all 12/29/2024 Exercise Vital Sign Answer Date Recorde d On average, how many days pe r week do you engage in moderate to strenuous exercise (like a brisk walk)? 5 days 12/29/2024 On average, how many minutes do you engage in exercise at this level? 30 min 12/29/2024 Hunger Vital Sign Answer Date Recorded Within the past 12 months, y ou worried that your food would run out before you got the money to buy more. Never true 12/30/19 25 Within the past 12 months, t he food you bought just didn't last and you didn't have money to get more. Never true 12/29/2024 PRAPARE - Transportation Answer Date Re corded In the past 12 months, has l ack of transportation kept you from medical appointments or from getting medications? No 12/10 In the past 12 months, has l ack of transportation kept you from meetings, work, or from getting things needed for daily living? No 12/29/2024 Housing Stability Vital Sign Answer Sami e Recorded In the last 12 months, was t here a time when you were not able to pay the mortgage or rent on time? No 12/29/2024 In the past 12 months, how m any times have you moved where you were living? 0 12/29/2024 At any time in the past 12 m [facility], were you homeless or living in a senior living (including now)? No 12/29/2024 Safety and Environment Answer Date Caleb rded Do you worry that your child may have been physically abused? Patient declined 12/10/2023 Do you worry that your child may have been sexually abused? Patient declined 12/10/2023 Are there any guns kept in o r around your home or where your child spends time? Patient declined 12/10/2023 Guns Unloaded or Locked Away Not on file 06/2023 Utilities Answer Date Recorded In the past 12 months has e electric, gas, oil, or water company threatened to shut off services in your home? No 12/29/2024 PHQ-2A Answer Date Recorded Patient Health Questionnaire-2 Score 0 11/09/2022 Comments Unknown Sex and Gender Information Value Date Recorded Sex Assigned at Not on file Legal Sex Female 6:25 PM EDT Gender Identity Not on file Sexual Orientation Not on file documented as of this encounter Miscellaneous Notes * Telephone Encounter - Lula Johansen RN - 02/27/2025 8:44 AM EDT Pt needs an appt documented in this encounter Plan of Treatment Upcoming Encounters Date Type Department Care Team (Late st Contact Info) Description 07/07/2025 11:15 AM EST Consult [facility] [address] [place] [address] Cesar Tee MD [address] [facility] [address] [place] [address] documented as of this encounter Visit Diagnoses Diagnosis Insomnia, unspecified type documented in this encounter Additional Health Concerns Assessment Noted Time A fall risk assessment has been complete d for the patient 12/29/2024 11:26 AM EDT A Body Mass Index follow-up plan has been documented for the patient 02/28/2024 11:21 AM EDT documented as of this encounter Care Teams Rn First Assistant Relationship Specialty Start Date End Date Pcp, No [address] [place] [address] PCP - General Family Medicine 03/12/25 Marivel Colón LPN VALUE-BASED TRANSFORMATION PROGRAM None TCM Nurse 12/25/24 documented as of this encounter
--- OUTSIDE RECORDS SUMMARY | 2025-05-29 07:31 | XMS_ITS | Encounter Summary ---
[facility] [address] [place] [address] Care Team Providers Care Raw Material Planner Name Role Phone Pauline Haynes DO Primary Care Provider [phone] Encounter Details Date Type Department Care Team (Late st Contact Info) Description 05/28/2025 Results Follow-Up [facility] [address] [place] [phone] Pauline Haynes DO [address] [place] [address] Social History Tobacco Use Types Packs/Day Years [...] PM EDT documented as of this encounter Plan of Treatment Not on file documented as of this encounter Visit Diagnoses Not on filedocumented in this encounter Care Teams Raw Material Planner Relationship Specialty Start Date End Date Pauline Haynes DO [address] [place] [address] PCP - General Family Medicine 01/05/25 documented as of this encounter
--- OUTSIDE RECORDS SUMMARY | 2025-05-29 07:31 | XMS_ITS ---
Author Organization [facility] Address [address] [id number] Care Team Providers Care Sodium Methylate Operator Name Role Phone Marivel Colón LPN Unavailable Unavailabl e Pcp, No Primary Care Provider Unavailabl e Annual Wellness Status:Active (Active) Program category:Care Coordination Start date:12/25/2024 Enrollment date:12/29/2024 Enrollment reason:Identified using claims or encounter data Case Team Name Relationship Phone Marivel Colón LPN(Responsible Staff) Licensed Practical Nurse Continued Care and Services Coordination
--- OUTSIDE RECORDS SUMMARY | 2025-05-29 07:31 | XMS_ITS | Encounter Summary ---
Author Organization Healthcare Address [address] [place] [address] Care Team Providers Care Report Clerk Name Role Phone Nae Maldonado APRN Primary Care Provider Marivel Colón LPN Unavailable Unavailabl e Marivel Colón LPN Unavailable Unavailabl e Pcp, No Primary Care Provider Unavailabl e Encounter Details Date Type Department Care Team (Late st Contact Info) Description 03/28/2024 Orders Only External Location [address] [place] [address] Provider, External Social History Tobacco Use Types Packs/Day Years Used Date Smoking Tobacco: Never Smokeless Tobacco: Never Alcohol Use Standard Drinks/Week Comments Never 0 (1 standard drink = 0.6 oz pur e alcohol) Humiliation, Afraid, Rape, and Kick questionnair e Answer Date Recorded Within the last year, have y ou been afraid of your partner or ex-partner? No 01/02/2024 Within the last year, have y ou been humiliated or emotionally abused in other ways by your partner or ex-partner? No Within the last year, have y ou been kicked, hit, slapped, or otherwise physically hurt by your partner or ex-partner? No 01/02/2024 Within the last year, have y ou been raped or forced to have any kind of sexual activity by your partner or ex-partner? No 01/02/2024 Social Connection and Isolation Panel Answer Date Recorded In a typical week, how many times do you talk on the phone with family, friends, or neighbors? More than three times a week 01/02/2024 How often do you get togethe r with friends or relatives? More than three times a week 01/02/2024 How often do you attend chur ch or adventist services? Never 01/02/2024 Do you belong to any clubs o r organizations such as amish groups, unions, fraternal or athletic groups, or [...] Recorded Patient Health Questionnaire-2 Score 0 01/02/2024 [facility] - Occupational Stress Questionnaire Answer Date Recorded Do you feel stress - tense, restless, nervous, or anxious, or unable to sleep at night because your mind is troubled all the time - these days? Not at all 01/02/2024 Exercise Vital Sign Answer Date Recorde d On average, how many days pe r week do you engage in moderate to strenuous exercise (like a brisk walk)? 2 days 01/02/2024 On average, how many minutes do you engage in exercise at this level? 20 min 01/02/2024 Hunger Vital Sign Answer Date Recorded Within the past 12 months, y ou worried that your food would run out before you got the money to buy more. Never true 12/10/19 24 Within the past 12 months, t he food you bought just didn't last and you didn't have money to get more. Never true 12/10/2023 PRAPARE - Transportation Answer Date Re corded In the past 12 months, has l ack of transportation kept you from medical appointments or from getting medications? No 12/10 In the past 12 months, has l ack of transportation kept you from meetings, work, or from getting things needed for daily living? No 01/02/2024 Housing Stability Vital Sign Answer Sami e Recorded In the last 12 months, was t here a time when you were not able to pay the mortgage or rent on time? No 12/10/2023 In the last 12 months, how many places have you lived? 1 12/10/2023 In the last 12 months, was t here a time when you did not have a steady place to sleep or slept in a longterm (including now)? No 12/10/2023 Safety and Environment Answer Date Caleb rded [...] Recorded In the past 12 months has th e electric, gas, oil, or water company threatened to shut off services in your home? No 12/10/2023 PHQ-2A Answer Date Recorded Patient Health Questionnaire-2 Score 0 11/09/2022 Comments Unknown Sex and Gender Information Value Date Recorded Sex Assigned at Not on file Legal Sex Female 6:25 PM EDT Gender Identity Not on file Sexual Orientation Not on file documented as of this encounter Plan of Treatment Upcoming Encounters Date Type Department Care Team (Late st Contact Info) Description 07/07/2025 11:15 AM EST Consult [facility] [address] [place] [address] Cesar Tee MD [address] [facility] [address] [place] [address] documented as of this encounter Procedures Procedure Name Priority Date/Time Associated Diagnosis Comments MR NEURO OUTSIDE IMAGES 03/28/2024 4:50 PM EDT documented in this encounter Results * MR NEURO OUTSIDE IMAGES (03/28/2024 4:50 PM EDT) Anatomical Region Laterality Modality Magnetic Resonan ce 03/28/2024 4:50 PM EDT us External Provider IMG MRI PROCEDURES Final Resul t documented in this encounter Visit Diagnoses Not on filedocumented in this encounter Additional Health Concerns Assessment Noted Time A fall risk assessment has been complete d for the patient 02/27/2024 1:51 PM EDT A Body Mass Index follow-up plan has been documented for the patient 02/28/2024 11:21 AM EDT documented as of this encounter Care Teams Report Clerk Relationship Specialty Start Date End Date Nae Maldonado APRN [address] [place] [address] PCP - General Family Medicine 11/29/21 02/02/25 Pcp, [place] [address] [place] [address] PCP - General Family Medicine 03/12/25 Marivel Colón LPN VALUE-BASED TRANSFORMATION PROGRAM None TCM Nurse 12/25/24 Marivel Colón LPN VALUE-BASED TRANSFORMATION PROGRAM None Licensed Practical Nurse 12/25/24 02/02/25 documented as of this encounter
--- OUTSIDE RECORDS SUMMARY | 2025-05-29 07:31 | XMS_ITS | Encounter Summary ---
Author Organization Healthcare Address [address] [place] [address] Care Team Providers Care Javascript Web Developer Name Role Phone Nae Maldonado APRN Primary Care Provider Marivel Colón LPN Unavailable Unavailabl e Marivel Colón LPN Unavailable Unavailabl e Pcp, No Primary Care Provider Unavailabl e Reason for Visit * Reason Onset Date Comments Med Refill 01/05/2025 Encounter Details Date Type Department Care Team (Late st Contact Info) Description 01/05/2025 Refill [facility] [address] [place] [address] Nae Maldonado APRN [address] [place] [address] Social History Tobacco Use Types Packs/Day Years [...] often do you attend chur ch or pentecostalism services? Never 01/02/2024 Do you belong to any clubs o r organizations such as latter-day groups, unions, fraternal or athletic groups, or [...] 12/29/2024 How often do you attend chur ch or pentecostalism services? Never 12/29/2024 Do you belong to any clubs o r organizations such as latter-day groups, unions, fraternal or athletic groups, or [...] more drinks on one occasion? Never 12/29/2024 [facility] - Occupational Stress Questionnaire Answer [...] any time in the past 12 m onths, were you homeless or living in a snf (including now)? No 12/29/2024 Safety and Environment [...] Info) Description 07/07/2025 11:15 AM EST Consult [facility] [address] [place] [address] Cesar Tee MD [address] [facility] [address] [place] [address] documented as of this encounter Visit Diagnoses Not on filedocumented in this encounter Additional Health Concerns Assessment Noted Time A fall risk assessment has been complete d for the patient 12/29/2024 11:26 AM EDT A Body Mass Index follow-up plan has been documented for the patient 02/28/2024 11:21 AM EDT documented as of this encounter Care Teams Javascript Web Developer Relationship Specialty Start Date End Date Nae Maldonado APRN [address] [place] [id number] PCP - General Family Medicine 11/29/21 02/02/25 Pcp, [place] [address] [place] [address] PCP - General Family Medicine 03/12/25 Marivel Colón LPN VALUE-BASED TRANSFORMATION PROGRAM None TCM Nurse 12/25/24 Marivel Colón LPN VALUE-BASED TRANSFORMATION PROGRAM None Licensed Practical Nurse 12/25/24 02/02/25 documented as of this encounter
--- OUTSIDE RECORDS SUMMARY | 2025-05-29 07:32 | XMS_ITS | Patient Health Record ---
Author Organization [facility] Address [address] [place] [address] Care Team Providers Care Mental Health Aide Name Role Phone Jean Carlos Walton Unavailable [phone] Balbir READ -LPSarkis, Kentrell Unavailable Unavaila ble Allergies No Known Allergies Reason For Referral No Information Medications Medication SIG (Take, Route, Frequency, Duration) Notes Start Date End Date Status Acetaminophen-Oxycodone Hydrochloride 325 mg-7.5 mg 1 tab(s) orally three times a day; Duration: 30 day(s) DX: M54.12 DO NOT FILL SOONER THAN 30 DAYS (OK TO FILL EARLY IF PHARMACY CLOSED) Active Acetaminophen-Oxycodone Hydrochloride 325 mg-7.5 mg 1 tab(s) orally 3 times a day; Duration: 30 days DO NOT FILL ANY SOONER THAN EVERY 30 DAYS, (OK TO FILL EARLY IF CLOSED) DX: M54.5 Active Medrol Dosepak 4 mg as directed Orally 1 time a day; Duration: 5 days Active DULoxetine 30 mg 1 cap(s) orally 2 times a day; Duration: 30 day(s) 06/01/2020 Active traZODone 50 mg 1 tab(s) orally 2 times a day; Duration: 30 day(s) 06/01/2020 Active TraMADol Hydrochloride 100 mg 1 tab(s) orally three times a day; Duration: 30 days Active cyclobenzaprine 10 mg 1 tab(s) orally Q HS; Duration: 30 days Active meloxicam 15 mg 1 tab(s) orally once a day; Duration: 30 day(s) Active Narcan 4 mg/0.1 mL as directed intranasally once; Duration: 30 days DO NOT FILL ANY SOONER THAN EVERY 30 DAYS, (OK TO FILL EARLY IF CLOSED) Active propranolol 10 mg 1 tab(s) orally 2 times a day; Duration: 30 day(s) 06/01/2020 Active pregabalin 75 mg 1 cap(s) orally at bedtime; Duration: 30 day(s) Active busPIRone 10 mg 1 tab(s) orally 2 times a day; Duration: 30 day(s) 06/01/2020 Active Social History Tobacco Use: Social History Observation Description Date Details (start date - stop date) Never Smoker NA - NA Alcohol Screen Question Answer Notes Did you have a drink containing alcohol in the p ast year? No Points 0 Interpretation Negative Smoking-PQRS Question Answer Notes Are you a: nonsmoker Problems Problem Type SNOMED Code ICD Code Onset Dates Problem Status W/U Status Risk Notes Problem Solitary sacroiliitis (666086950) Sacroiliitis, not elsewhere classified (M46.1) Active confirmed Problem Lumbosacral spondylosis without myelopathy (20458519) Spondylosis without myelopathy or radiculopathy, lumbar region (M47.816) Active confirmed Problem Degeneration of cervical intervertebral disc (98134246) Other cervical disc degeneration, unspecified cervical region (M50.30) Active confirmed Problem Pain in limb (13991371) Pain in right hand (M79.641) Active confirmed Problem Long-term current use of drug therapy (934780329) Other intermediate school teacher (current) drug therapy (Z79.899) Active confirmed Problem Cervical radiculopathy (10842279) cervical radiculopathy (M54.12) Active confirmed Plan Of Treatment Pending Test Test Name Order Date Urine Test ANALYZER 12/30/2020 Urine Test ANALYZER 12/26/2022 CBC with Differential 12/24/2023 Comprehensive Metabolic Panel 12/24/2023 [id number] - FEMALE PRE-PELLET 12/24/2023 Insurance Providers Payer Name Payer Address Payer Phone Subscriber Number Group Number Insured Name Patient Relationship to Insured Coverage Start Date Coverage End Date [place] [employer] [address] [place] [address] [id number] Lupe Grewal Self - patient is the insured Medical (General) History Medical History History ICD Code Fibromyalgia diagnosed in 2005 Anxiety diagnosed in 2018 Insomnia diagnosed in 2005 Chronic Fatigue diagnosed in 2005 Early Onset Dementia diagnosed in 2018 Surgical History Surgery Date(Month/Year) Gum Grafting 2021 DNC 2021 Nose Surgery/skin cancer 1995 Breast Lumpectomy 1995 Cholecystectomy 1997 Tonsillectomy 1994
--- OUTSIDE RECORDS SUMMARY | 2025-05-29 07:32 | XMS_ITS | Encounter Summary ---
Author Organization [facility] Address [address] [place] [address] Care Team Providers Care Trimming Operator Name Role Phone Pauline Haynes DO Primary Care Provider Encounter Details Date Type Department Care Team (Latest Contact Info) Description 04/06/2025 Travel Social History Tobacco Use Types Packs/Day Years [...] on filedocumented in this encounter Care Teams Trimming Operator Relationship Specialty Start Date End Date Pauline Haynes DO [address] [place], [place] [id number] PCP - General Family Medicine 01/05/25 documented as of this encounter
--- OUTSIDE RECORDS SUMMARY | 2025-05-29 07:32 | XMS_ITS | Encounter Summary ---
Author Organization [employer] ([place], [place], [place], [place], [place]) Address [address] [place] [address] Care Team Providers Care Rejoiner Name Role Phone Unavailable Primary Care Provider Unavailabl e Encounter Details Date Type Department Care Team (Late st Contact Info) Description 01/05/2021 Transcribed Document [facility] [facility] [place] [address] [place] [address] ProviderLali MD [address] [place] [address] Social History Tobacco Use Types Packs/Day Years Used Date Smoking Tobacco: Never Assessed Comments Unknown Sex and Gender Information Value Date Recorded Sex Assigned at Female 12/06/2021 8:53 PM CDT Legal Sex Female 8:53 PM CDT Gender Identity Female 12/06/2021 8:53 PM CDT Sexual Orientation Not on file documented as of this encounter Miscellaneous Notes * Cerner Conversion Note - Historical Provider, - 01/05/2021 2:24 PM CDT LAZARA Walton IntraOp Summary Primary Physician: DEBRA HENDERSON MD-GAE Finalized Date/Time: 01/05/21 15:17:04 Pt. Name: LUPE BLOOM Barrett /Sex: 1960 Female Med Rec #: [id number] Physician: DEBRA HENDERSON MD-GAE Financial #: [id number] Pt. Type: E Room/Bed: [facility] Admit/Disch: 01/05/21 10:51:00 - Institution: [facility] [place] Endo - Case Attendance Entry 1 Entry 2 Entry 3 Case Attendee DEBRA HENDERSON Neimy, Haider W, Conner, Elizabeth A Rn MISAEL Brim Setter Role Performed Surgeon/Proceduralist, Marine Engineer Shoe Parts Molder, First First Time In 01/05/21 14:20:00 01/05/21 14:13:00 01/05/21 14:13:00 Time Out 01/05/21 15:05:00 01/05/21 15:05:00 01/05/21 15:05:00 Procedure Endoretrogradecholangiop Endoretrogradecholangiop Endoretrogradecholangiop ancreatography, ancreatography, ancreatography, Sphincterotomy, Gastric Sphincterotomy, Gastric Sphincterotomy, Gastric Biopsy Biopsy Biopsy Other Attendee Superficial Wound Closed By: Last Modified By: Lisseth Friedman, Lisseth Madrigal, Lisseth Madrigal, Hayley 01/05/21 15:16:29 01/05/21 15:16:29 01/05/21 15:16:29 Entry 4 Entry 5 Entry 6 Case Attendee OBED VIERA TECH SIMPSON, KELSI A, NA RONAN, JENIFFER, MD Role Performed Scrub, First [place] APPRENTICE/Nurse Roving Department Supervisor Anesthesiologist of Record Time In 01/05/21 14:13:00 01/05/21 14:13:00 01/05/21 14:13:00 Time Out 01/05/21 15:05:00 01/05/21 15:05:00 01/05/21 15:05:00 Procedure Endoretrogradecholangiop Endoretrogradecholangiop Endoretrogradecholangiop ancreatography, ancreatography, ancreatography, Sphincterotomy, Gastric Sphincterotomy, Gastric Sphincterotomy, Gastric Biopsy Biopsy Biopsy Other Attendee Superficial Wound Closed By: Last Modified By: Lisseth Friedman, Lisseth Madrigal, Lisseth Madrigal, Hayley 01/05/21 15:16:29 01/05/21 15:16:29 01/05/21 15:16:29 [facility] [place] Endo - Case Attendance Audit 01/05/21 15:16:29 Mold Yarn Supervisor: [id number] Modifier: [id number] <*> Procedure Endoretrogradecholangiopancreatography, Sphincterotomy 2 <*> Procedure Endoretrogradecholangiopancreatography, Sphincterotomy 3 <*> Procedure Endoretrogradecholangiopancreatography, Sphincterotomy 4 <*> Procedure Endoretrogradecholangiopancreatography, Sphincterotomy 5 <*> Procedure Endoretrogradecholangiopancreatography, Sphincterotomy 6 <*> Procedure Endoretrogradecholangiopancreatography, Sphincterotomy 01/05/21 15:00:21 Mold Yarn Supervisor: [id number] Modifier: [id number] <+> Time Out 1 <*> Procedure Endoretrogradecholangiopancreatography, Sphincterotomy 2 <+> Time Out 2 <*> Procedure Endoretrogradecholangiopancreatography, Sphincterotomy 3 <+> Time Out 3 <*> Procedure Endoretrogradecholangiopancreatography, Sphincterotomy 4 <+> Time Out 4 <*> Procedure Endoretrogradecholangiopancreatography, Sphincterotomy 5 <+> Time Out 5 <*> Procedure Endoretrogradecholangiopancreatography, Sphincterotomy 6 <+> Time Out 6 <*> Procedure Endoretrogradecholangiopancreatography, Sphincterotomy 01/05/21 14:44:27 Mold Yarn Supervisor: [id number] Modifier: [id number] 1 <*> Procedure Endoretrogradecholangiopancreatography 2 <*> Procedure Endoretrogradecholangiopancreatography 3 <*> Procedure Endoretrogradecholangiopancreatography 4 <*> Procedure Endoretrogradecholangiopancreatography 5 <*> Procedure Endoretrogradecholangiopancreatography 6 <*> Procedure Endoretrogradecholangiopancreatography 01/05/21 14:20:47 Mold Yarn Supervisor: [id number] Modifier: [id number] 1 <*> Time In 01/05/21 14:13:00 1 <*> Procedure Endoretrogradecholangiopancreatography 01/05/21 14:20:10 Mold Yarn Supervisor: [id number] Modifier: [id number] <+> 1 Procedure 2 <+> Time In 2 <*> Procedure Endoretrogradecholangiopancreatography 3 <+> Time In 3 <*> Procedure Endoretrogradecholangiopancreatography 4 <+> Time In 4 <*> Procedure Endoretrogradecholangiopancreatography 5 <+> Time In 5 <*> Procedure Endoretrogradecholangiopancreatography 6 <+> Time In 6 <*> Procedure Endoretrogradecholangiopancreatography [facility] - Case Times Entry 1 Patient In Room Time 01/05/21 14:13:00 Out Room Time 01/05/21 15:05:00 Anesthesia Start Time 01/05/21 14:13:00 Stop Time 01/05/21 15:05:00 Anesthesia Ready 01/05/21 14:13:00 Surgery / Procedure Times Start Time 01/05/21 14:24:00 Stop Time 01/05/21 14:58:00 Last Modified By: Lisseth Friedman Rn 01/05/21 14:58:51 [facility] - Case Times Audit 01/05/21 14:58:51 Mold Yarn Supervisor: [id number] Modifier: [id number] <+> 1 Out Room Time <+> 1 Stop Time <+> 1 Stop Time 01/05/21 14:24:47 Mold Yarn Supervisor: [id number] Modifier: [id number] <+> 1 Start Time [facility] - Cautery Entry 1 ESU Identification Cautery Type Monopolar ESU Cautery Type ENDO CUT Comments ID Number ERBE ID Type Hospital Number Cautery Settings ESU Grounding Pad Ground Pad Type Argon Grounding Pad Site Left Flank Grounding Pad OBED VIERA TECH Applied By Grounding Pad Site Dry, Intact Skin Condition Before Cautery Grounding Pad Site Unchanged Skin Condition After Cautery Last Modified By: Lisseth Friedman Rn 01/05/21 14:59:47 [facility] - Cultures and Spec Summary Entry 1 Cultrures and Specimens Specimen Ordered: Yes Test(s) Routine/Path-Lab Requested/Final Disposition Last Modified By: Lisseth Friedman Rn 01/05/21 15:17:02 [facility] - Delays Entry 1 Delay Reason Other Duration 0 Minute(s) Comment NO DELAY Last Modified By: Lisseth Friedman Rn 01/05/21 14:18:22 [facility] - Departure from OR Entry 1 Integumentary Assessment Integumentary WDL Assessment WDL Transfer/Handoff Transfer to PACU Phase I Handoff Method Bedside/Face to face Post-op Transport Stretcher/Gurney Via Patient Transport Lisseth Friedman, Accompanied by Rn, VENANCIO UNDERWOOD NA Last Modified By: Lisseth Friedman Rn 01/05/21 14:18:30 E Endo - Endoscopy Details Entry 1 Abdomen Procedure Soft, Non-Tender, Assessment Non-distended Procedure Abdomen 01/05/21 14:18:00 Assessment D/T Radio Frequency Ablation Abdominal Pressure Last Modified By: Lisseth Friedman Rn 01/05/21 14:18:39 E Endo - Fire Risk Assessment Entry 1 Fire Info Surgical Site or 1- Yes Incision Above the Xyphoid Open O2 Source 1- Yes (Mask or Cannula) Available Ignition 1- Yes (ESU, Laser, Light Source) Fire Risk 3 Assessment Score Fire Score Fire Risk Yes Assessment Complete Fire Risk Lisseth Friedman Rn Assessment Verified By Fire Risk 01/05/21 14:18:00 Assessment Verified Date/Time Fire Risk High Risk Protocol Yes Implemented Standard Fire Yes Safety Precautions Followed Last Modified By: Lisseth Friedman Rn 01/05/21 14:18:45 [facility] [place] Endo - General Case Instrumentation Engineer 1 Case Information OR Endo 06 E Case Level 1 Room Verified Yes Wound Class II - Clean-Contaminated Specialty Gastroenterology Anesthesia Type General ASA Class 2 Diagnosis Preop Diagnosis epigastric pain, abnormal mrct Postop Same As Preop Yes Postop Diagnosis epigastric pain, abnormal mrct Last Modified By: Lisseth Friedman Rn 01/05/21 14:33:39 [facility] [place] Endo - General Case Data Audit 01/05/21 14:33:39 Mold Yarn Supervisor: [id number] Modifier: [id number] 1 <*> Anesthesia Type MAC 1 <*> Preop Diagnosis R10.10 R93.3 1 <*> Postop Diagnosis R10.10 R93.3 E Endo - Intraoperative Assessment Entry 1 Handoff Report Lisseth Friedman Rn Received from Handoff Method Bedside/Face to face Valid History / Yes Physical in Chart Preoperative Yes Checklist Reviewed/Evaluated Patient is Latex No Sensitive Level of WDL Consciousness (WDL = Alert, Oriented to Person, Place, and Time) Present Upon IVs, ECG monitored Arrival to OR Last Modified By: Lisseth Friedman Rn 01/05/21 15:14:39 E Endo - Intraoperative Assessment Audit 01/05/21 15:14:39 Mold Yarn Supervisor: [id number] Modifier: [id number] <+> 1 Valid History / Physical in Chart <+> 1 Handoff Report Received from 01/05/21 15:01:40 Mold Yarn Supervisor: [id number] Modifier: [id number] <+> 1 Handoff Method 01/05/21 15:01:22 Mold Yarn Supervisor: [id number] Modifier: [id number] <+> 1 Preoperative Checklist Reviewed/Evaluated [facility] [place] Endo - Intraoperative Equipment Entry 1 Type Scope Equipment Intraop Monitoring Electrocardiogram Three lead placement (ECG) Electrode Placement Blood Pressure Arm, left upper Location Pulse Oximeter Hand, right Probe Site Antiembolic Devices Scopes Flexible Endoscopes ERCP Scope Used Scope Serial [id number] Number/Identificatio n Number Photo/Video Documentation Photo Yes Video No Last Modified By: Lisseth Friedman Rn 01/05/21 14:19:38 [facility] [place] [facility]o - Medication Admin Entry 1 Medication/Irrigant Isovue-300 50ml - [id number] Time Administered 01/05/21 14:25:00 Route of [id number] Administration Dose Dose 1 Unit of Measure ml Administered By DEBRA HENDERSON MD-GATahir Procedure Irrigation Last Modified By: Lisseth Friedman Rn 01/05/21 14:56:37 [facility] [place] Endo - Patient Positioning Entry 1 Procedure Endoretrogradecholangiop ancreatography, Sphincterotomy, Gastric Biopsy Body Position Lateral, right side up Left Arm Position Resting at side Right Arm Position Resting at side Left Leg Position Other Right Leg Position Other Position Comments Right leg over Left leg uncrossed Feet Uncrossed Yes Pressure Points Yes Checked Positioned By Lisseth Friedman Rn, VENANCIO UNDERWOOD NA, OBED VIERA TECH Position Verified Positioning Yes Verified by Surgeon Last Modified By: Lisseth Friedman Rn 01/05/21 15:16:30 [facility] - Patient Positioning Audit 01/05/21 15:16:30 Mold Yarn Supervisor: [id number] Modifier: [id number] 1 <*> Procedure Endoretrogradecholangiopancreatography, Sphincterotomy 01/05/21 14:44:28 Mold Yarn Supervisor: [id number] Modifier: [id number] 1 <*> Procedure Endoretrogradecholangiopancreatography [facility] - Sign In Entry 1 Patient, Site, Yes Procedure Identified Surgical Consent Yes Confirmed Surgical Site N/A Marked by person performing procedure Airway Hypothermia Risk No Warming Measures Yes Taken Last Modified By: Lisseth Friedman Rn 01/05/21 14:20:01 [facility] - Sign Out Entry 1 RN Confirmation Surgical Yes Procedure(s) Identified Instrument, Sponge N/A and Sharps Counts Correct/Documented Equipment Problems N/A Documented Specimen Labeled Yes Correctly Urinary Catheter N/A Documented in IView Safety Checklist Yes Elements Complete? RN Sign Out Lisseth Friedman Rn Signature RN Sign Out 01/05/21 15:05:00 Signature Date/Time Plan of Care Outcome - Fire Risk OUTCOME STATEMENT: Goal met Patient is free from injury related to surgical fire Plan of Care Outcome - Pt Positioning OUTCOME STATEMENT: Goal met Absence of signs and symptoms of positioning injury. Plan of Care Outcome - Skin Prep OUTCOME STATEMENT: Goal met Intraoperative care is consistent with measures to prevent infection Plan of Care Outcome - Xray/Images OUTCOME STATEMENT: Goal met Absence of observable signs or symptoms of radiation injury Plan of Care Outcome - Counts OUTCOME STATEMENT: N/A Absence of signs and symptoms of injury related to extraneous objects Last Modified By: Lisseth Friedman Rn 01/05/21 14:58:39 [facility] [place] Endo - Surgical Procedures Entry 1 Entry 2 Entry 3 Procedure Endoretrogradecholangiop Sphincterotomy Gastric Biopsy ancreatography Modifiers Additional Procedure Description Primary Procedure Yes No No Primary Surgeon DEBRA HENDERSON, DEBRA HENDERSON, DEBRA HENDERSON MD-GAE MD-GAE MD-GAE Start 01/05/21 14:24:00 01/05/21 14:24:00 01/05/21 14:24:00 Stop 01/05/21 14:58:00 01/05/21 14:58:00 01/05/21 14:58:00 Physician States Cecum Reached Anesthesia Type MAC MAC MAC Specialty Gastroenterology Gastroenterology Gastroenterology Wound Class II - Clean-Contaminated II - Clean-Contaminated II - Clean-Contaminated Last Modified By: Lisseth Friedman Rn Conner, Elizabeth A, Rn Conner, Elizabeth A, Rn 01/05/21 15:01:51 01/05/21 15:01:51 01/05/21 15:16:29 [facility] [place] Endo - Surgical Procedures Audit 01/05/21 15:16:29 Mold Yarn Supervisor: [id number] Modifier: [id number] <+> 3 Procedure <+> 3 Primary Procedure <+> 3 Primary Surgeon <+> 3 Specialty <+> 3 Start <+> 3 Stop <+> 3 Wound Class <+> 3 Anesthesia Type 01/05/21 15:01:51 Mold Yarn Supervisor: [id number] Modifier: [id number] <+> 1 Stop <+> 2 Stop 01/05/21 14:44:26 Mold Yarn Supervisor: [id number] Modifier: [id number] <+> 2 Procedure <+> 2 Primary Procedure <+> 2 Primary Surgeon <+> 2 Specialty <+> 2 Start <+> 2 Wound Class <+> 2 Anesthesia Type 01/05/21 14:32:44 Mold Yarn Supervisor: [id number] Modifier: [id number] <+> 1 Start [facility] [place] Endo - Time Out Entry 1 Procedure to be Endoretrogradecholangiop Performed ancreatography, Sphincterotomy, Gastric Biopsy Time Out Time Out Pause Time 01/05/21 14:21:00 All activity Yes suspended (unless life threatening emergency) Team Verbally Correct patient Confirms Information identity, Consent form is present and accurate, Agreement on the procedure to be done, Correct patient position, Relevant images/results properly labeled/appropriately displayed, Reconcile problems if responses among team members differ Antibiotic Yes Prophylaxis Administered Or In Progress Within the Last 60 Minutes Beta Oanh N/A Administered Venous N/A Thromboembolism Prophylaxis Required Anticipated Critical Events Surgeon None expected Anesthesia Provider None expected Last Modified By: Lisseth Friedman Rn 01/05/21 15:16:30 E Endo - Time Out Audit 01/05/21 15:16:30 Mold Yarn Supervisor: [id number] Modifier: [id number] 1 <*> Procedure to be Performed Endoretrogradecholangiopancreatography, Sphincterotomy 01/05/21 14:44:28 Mold Yarn Supervisor: [id number] Modifier: [id number] 1 <*> Procedure to be Performed Endoretrogradecholangiopancreatography 01/05/21 14:24:40 Mold Yarn Supervisor: [id number] Modifier: [id number] 1 <+> Time Out Pause Time 1 <*> Procedure to be Performed Endoretrogradecholangiopancreatography [facility] - X-Ray and Images Entry 1 X-Ray/Imaging Type Fluoroscopy Fluoroscopy Type C-Arm Exposure Time 2.2 Last Modified By: Lisseth Friedman Rn 01/05/21 14:58:23 Case Comments <None> Finalized By: Lisseth Friedman Rn Document Signatures Signed By: Lisseth Friedman Rn 01/05/21 15:17 documented in this encounter Plan of Treatment Not on file documented as of this encounter Visit Diagnoses Not on filedocumented in this encounter
--- OUTSIDE RECORDS SUMMARY | 2025-05-29 07:32 | XMS_ITS | Encounter Summary ---
Author Organization [employer] ([place], [place], [place], [place], [place]) Address [address] [place] [id number] Care Team Providers Care Group Underwriter Name Role Phone Unavailable Primary Care Provider Unavailabl e Encounter Details Date Type Department Care Team (Late st Contact Info) Description 01/05/2021 Transcribed Document [facility] [place] [address] [place] [address] ProviderLali MD [address] [place] [address] Social History Tobacco Use Types Packs/Day Years Used Date Smoking Tobacco: Never Assessed Comments Unknown Sex and Gender Information Value Date Recorded Sex Assigned at Female 12/06/2021 8:53 PM CDT Legal Sex Female 8:53 PM CDT Gender Identity Female 12/06/2021 8:53 PM CDT Sexual Orientation Not on file documented as of this encounter Miscellaneous Notes * Cerner Conversion Note - Lali Hutchinson MD - 01/05/2021 3:40 PM CDT Patient Education Materials Follows:and Gynecology Monitored Anesthesia Care, Care After These instructions provide you with information about caring for yourself after your procedure. Your health care provider may also give you more specific instructions. Your treatment has been planned according to current medical practices, but problems sometimes occur. Call your health care provider if you have any problems or questions after your procedure. What can I expect after the procedure? After your procedure, you may: ??? Feel sleepy for several hours. ??? Feel clumsy and have poor balance for several hours. ??? Feel forgetful about what happened after the procedure. ??? Have poor judgment for several hours. ??? Feel nauseous or vomit. ??? Have a sore throat if you had a breathing tube during the procedure. Follow these instructions at home: For at least 24 hours after the procedure: ??? Have a responsible adult stay with you. It is important to have someone help care for you until you are awake and alert. ??? Rest as needed. ??? Do not: ? Participate in activities in which you could fall or become injured. ? Drive. ? Use heavy machinery. ? Drink alcohol. ? Take sleeping pills or medicines that cause drowsiness. ? Make important decisions or sign legal documents. ? Take care of children on your own. Eating and drinking ??? Follow the diet that is recommended by your health care provider. ??? If you vomit, drink water, juice, or soup when you can drink without vomiting. ??? Make sure you have little or no nausea before eating solid foods. General instructions ??? Take fjgt-tnj-umniwoq and prescription medicines only as told by your health care provider. ??? If you have sleep apnea, surgery and certain medicines can increase your risk for breathing problems. Follow instructions from your health care provider about wearing your sleep device: ? Anytime you are sleeping, including during daytime naps. ? While taking prescription pain medicines, sleeping medicines, or medicines that make you drowsy. ??? If you smoke, do not smoke without supervision. ??? Keep all follow-up visits as told by your health care provider. This is important. Contact a health care provider if: ??? You keep feeling nauseous or you keep vomiting. ??? You feel light-headed. ??? You develop a rash. ??? You have a fever. Get help right away if: ??? You have trouble breathing. Summary ??? For several hours after your procedure, you may feel sleepy and have poor judgment. ??? Have a responsible adult stay with you for at least 24 hours or until you are awake and alert. This information is not intended to replace advice given to you by your health care provider. Make sure you discuss any questions you have with your health care provider. Document Revised: 08/26/2018 Document Reviewed: 09/17/2016 Elsevier Patient Education ? 2020 [employer] Radiology Endoscopic Retrograde Cholangiopancreatogram, Care After This sheet gives you information about how to care for yourself after your procedure. Your health care provider may also give you more specific instructions. If you have problems or questions, contact your health care provider. What can I expect after the procedure? After the procedure, it is common to have: ??? Soreness in your throat. ??? Nausea. ??? Bloating. ??? Dizziness. ??? Tiredness (fatigue). Follow these instructions at home: ??? Take fioa-arf-ptvhhqa and prescription medicines only as told by your health care provider. ??? Do not drive for 24 hours if you were given a medicine to help you relax (sedative) during your procedure. Have someone stay with you for 24 hours after the procedure. ??? Return to your normal activities as told by your health care provider. Ask your health care provider what activities are safe for you. ??? Return to eating what you normally do as soon as you feel well enough or as told by your health care provider. ??? Keep all follow-up visits as told by your health care provider. This is important. Contact a health care provider if: ??? You have pain in your abdomen that does not get better with medicine. ??? You develop signs of infection, such as: ? Chills. ? Feeling unwell. Get help right away if: ??? You have difficulty swallowing. ??? You have worsening pain in your throat, chest, or abdomen. ??? You vomit bright red blood or a substance that looks like coffee grounds. ??? You have bloody or very black stools. ??? You have a fever. ??? You have a sudden increase in swelling (bloating) in your abdomen. Summary ??? After the procedure, it is common to feel tired and to have some discomfort in your throat. ??? Contact your health care provider if you have signs of infection?such as chills or feeling unwell?or if you have pain that does not improve with medicine. ??? Get help right away if you have trouble swallowing, worsening pain, bloody or black vomit, bloody or black stools, a fever, or increased swelling in your abdomen. ??? Keep all follow-up visits as told by your health care provider. This is important. This information is not intended to replace advice given to you by your health care provider. Make sure you discuss any questions you have with your health care provider. Document Revised: 05/10/2018 Document Reviewed: 04/16/2017 Elsevier Patient Education ? 2019 [employer] documented in this encounter Plan of Treatment Not on file documented as of this encounter Visit Diagnoses Not on filedocumented in this encounter
--- OUTSIDE RECORDS SUMMARY | 2025-05-29 07:32 | XMS_ITS | Encounter Summary ---
Author Organization [employer] ([place], [place], [place], [place], [place]) Address [address] [place] [address] Care Team Providers Care Home Health Registered Nurse Name Role Phone Unavailable Primary Care Provider Unavailabl e Encounter Details Date Type Department Care Team (Late st Contact Info) Description 01/05/2021 Transcribed Document [facility] [place] Family Medicine [address] [place] [address] ProviderLali MD [address] [place] [address] Social History Tobacco Use Types Packs/Day Years Used Date Smoking Tobacco: Never Assessed Comments Unknown Sex and Gender Information Value Date Recorded Sex Assigned at Female 12/06/2021 8:53 PM CDT Legal Sex Female 8:53 PM CDT Gender Identity Female 12/06/2021 8:53 PM CDT Sexual Orientation Not on file documented as of this encounter Miscellaneous Notes * Cerner Conversion Note - Lali ProviderMD - 01/05/2021 2:59 PM CDT Patient: LUPE BLOOM Age: 60 years Sex: Female : 1960 Associated Diagnoses: None Author: DEBRA DOVER MD-[facility] ERCP procedure note: Endoscopic Retrograde Cholangiopancreatography with ampullary needle-knife sphincterotomy and biopsy Endoscopist: Debra Dover II, MD Referring physician: Lester Jarvis MD Date of procedure: January 05, 2021 Equipment: Olympus DIF 190 side-viewing Duodenoscope Sedation: MAC sedation Indication: Mrs. Bloom is a 60-year-old female with chronic epigastric abdominal pain and bloating. She did have EGD and colonoscopy with ct in April 2016. At that time, she did have some anemia. Her EGD showed reactive gastropathy. Her colonoscopy showed some left-sided diverticulosis. The patient recently had an ultrasound of the right upper quadrant on November 12, 2020. There was evidence of prior cholecystectomy. There was also a dilated biliary system. A subsequent MRCP was performed on November 24, 2020. There was evidence of intrahepatic and extrahepatic biliary ductal dilation and mild pancreatic ductal dilation. The patient's recent lab work on October 25, 2020 showed normal alkaline phosphatase of 108. Her ALT level was slightly elevated at 57. Her lipase level 32 and amylase level 38 were normal. Her total bilirubin was 0.3. Procedure: Prior to the procedure a history and physical examination was performed. The patient's medications and allergies were reviewed. The risks, benefits and alternatives of the sedation and procedure were discussed with the patient. All questions were answered and informed consent was obtained. The patient was brought to the endoscopic room with the C arm. Patient identification and proposed procedure were verified by the physician and the nurse. The patient was placed in a left lateral swimmer's position between the left lateral decubitus and prone position and the scope was passed under direct vision. Throughout the procedure the patient's blood pressure, pulse, oxygen saturation were monitored continuously. The ERCP was accomplished without difficulty. The patient tolerated the procedure well and remained hemodynamically stable post procedure. Findings: The side-viewing duodenal scope was passed directly into the upper esophagus. There was evidence of nonerosive GERD. There was also some duodenal/biliary reflux with linear reactive gastropathy of the antrum. There was some erosions. Biopsies were taken from the lesser curvature and antrum. The scope was advanced to the second and third portion of the duodenum. There was a duodenal diverticulum between the first and second portion of the duodenum. The ampulla was well visualized. The pancreatic duct was easily cannulated. The pancreatogram showed a 3 to 4 mm pancreatic duct with normal filling of the uncinate, head, neck, body and tail the pancreas. There were no ductular ectasias and no strictures. There were no intraductal filling defects or calcifications. The biliary tree was somewhat difficult to cannulate. A needle-knife sphincterotomy was performed. There was excellent extravasation of bile. Full cannulation of the biliary system was not performed. 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 Impression: 1. 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 This is directly related to opiates which act to increase SOD spasm via mu receptors in the SOD. I did do sphincterotomy today with excellent drainage of the pancreas and biliary system. I will discuss the findings with the patient and family. I will follow up the gastric biopsies. documented in this encounter Plan of Treatment Not on file documented as of this encounter Visit Diagnoses Not on filedocumented in this encounter
--- OUTSIDE RECORDS SUMMARY | 2025-05-29 07:32 | XMS_ITS | Encounter Summary ---
[facility] Address [address] [place] [address] Care Team Providers Care Lens Edger Name Role Phone Pauline Haynes DO Primary Care Provider Reason for Visit * Reason Onset Date Comments New Med Request 04/07/2025 Encounter Details Date Type Department Care Team (Late st Contact Info) Description 04/07/2025 Telephone [facility] FAMILY MEDICINE [address] [place] [address] Pauline Haynes DO [address] [place] [address] New Med Request Social History Tobacco Use Types Packs/Day Years [...] PM EDT documented as of this encounter Miscellaneous Notes * Telephone Encounter - Pauline Haynes DO - 04/07/2025 5:23 PM EDT Refilled. She also requested trazodone refill yesterday, that has been sent, too. * Telephone Encounter - Hilaria Matta RegSched Rep - 04/07/2025 3:50 PM EDT Caller: Lupe Grewal Relationship: Self Best call back number: [phone] What medication are you requesting: FLEXIRYL What are your current symptoms: MUSCLE CRAMPS How long have you been experiencing symptoms: LONG TIME Have you had these symptoms before: [x] Yes [] No Have you been treated for these symptoms before: [x] Yes [] No If a prescription is needed, what is your preferred pharmacy and phone number: [facility] [id number] - [place], [place] - [address] [facility] [phone] [facility] [phone] Additional notes: documented in this encounter Plan of Treatment Not on file documented as of this encounter Visit Diagnoses Not on filedocumented in this encounter Care Teams Lens Edger Relationship Specialty Start Date End Date [place] [address] PCP - General Family Medicine 01/05/25 documented as of this encounter
--- OUTSIDE RECORDS SUMMARY | 2025-05-29 07:32 | XMS_ITS | Encounter Summary ---
Author Organization [employer] ([place], [place], [place], [place], [place]) Address [address] [place] [address] Care Team Providers Care Tile Layer Supervisor Name Role Phone Unavailable Primary Care Provider Unavailabl e Encounter Details Date Type Department Care Team (Late st Contact Info) Description 01/10/2021 Transcribed Document [facility] [place] [address] [place] [address] ProviderLali MD [address] [place] [address] Social History Tobacco Use Types [...] Cerner Conversion Note - Lali ProviderMD - 01/10/2021 10:27 AM CDT HPI: Mrs. Grewal is a 60-year-old female with chronic epigastric abdominal pain and bloating. She did have a prior EGD/colonoscopy with ne in April 2016. At that time, she had some anemia. Her EGD showed some reactive gastropathy. The patient has had left-sided diverticulosis. Her recent ultrasound of the right upper quadrant on November 12, 2020 showed a dilated biliary system. A subsequent MRCP performed on November 24, 2020 showed intra-and extra hepatic biliary ductal dilation and mild pancreatic ductal dilation. She did have a slightly elevated ALT level but the remainder of her liver and pancreatic chemistries were normal. ERCP is performed for further evaluation. General: Well-developed well-nourished patient in no acute distress HEENT: EOMI anicteric Neck: Supple no lymphadenopathy Chest: Clear to auscultation Cardiovascular: Regular rate and rhythm Abdomen: Normoactive bowel sounds, soft, nontender, nondistended, no hepatosplenomegaly Extremities: No edema Skin: No rashes or ecchymosis Neurologic: Nonfocal Pertinent new labs or imaging: See chart and above Assessment/Plan: Abnormal imaging biliary system and elevated liver enzyme???proceed with ERCP documented in this encounter Plan of Treatment Not on file documented as of this encounter Visit Diagnoses Not on filedocumented in this encounter
--- OUTSIDE RECORDS SUMMARY | 2025-05-29 07:32 | XMS_ITS | Encounter Summary ---
[facility] Address [address] [place] [address] Care Team Providers Care Machine Sewer Name Role Phone Pauline Haynes DO Primary Care Provider Reason for Visit * Reason Onset Date Comments Med Refill 05/19/2025 Encounter Details Date Type Department Care Team (Late st Contact Info) Description 05/19/2025 Refill [facility] FAMILY MEDICINE [address] [place] [address] Pauline Haynes DO [address] [place] [address] Fibromyalgia Social History Tobacco Use Types Packs/Day Years [...] as of this encounter Visit Diagnoses Diagnosis Fibromyalgia Unspecified myalgia and myositis documented in this encounter Care Teams Machine Sewer Relationship Specialty Start Date End Date Pauline Haynes DO [address] [place] [address] PCP - General Family Medicine 01/05/25 documented as of this encounter
--- OUTSIDE RECORDS SUMMARY | 2025-05-29 07:32 | XMS_ITS | Encounter Summary ---
[facility] Address [address] [place] [address] Care Team Providers Care Vocational Nurse Name Role Phone Pauline Haynes DO Primary Care Provider [phone] Encounter Details Date Type Department Care Team (Late st Contact Info) Description 04/09/2025 Results Follow-Up [facility] FAMILY MEDICINE [address] [place] [id number] Pauline Haynes DO [address] [place] [address] Social History Tobacco Use Types [...] on filedocumented in this encounter Care Teams Vocational Nurse Relationship Specialty Start Date End Date Pauline Haynes DO [address] [place] [address] PCP - General Family Medicine 01/05/25 documented as of this encounter
--- OUTSIDE RECORDS SUMMARY | 2025-05-29 07:32 | XMS_ITS | Clinical Summary ---
Author Organization [facility] Address [address] [place] [address] Care Team Providers Care Supervisor Keymodule Assembly Name Role Phone Nea Maldonado Jef ROBERTS Primary Care Provider [phone] Allergies Active Allergy Reactions Criticality Noted Date Comments Hydrocodone Itching,Nausea Only 11/16/2021 Hydrocodone Bitartrate Er Other (See Comments) Low 09/04/2014 Medications propranolol (INDERAL) 10 MG tablet Take 10 mg by mouth as needed. 1 Active traZODone (DESYREL) 50 MG tablet Take 25-50 mg by mouth nightly as needed. 1 Active traMADol (ULTRAM) 50 MG tablet Take 100 mg by mouth 3 (three) times daily. 3 Active glycopyrrolate (ROBINUL) 2 MG tablet Take 2 mg by mouth 3 (three) times daily as needed. Active sucralfate (CARAFATE) 1 g tablet Take 1 g by mouth four times daily as needed. Active DULoxetine (CYMBALTA) 60 MG capsule Take 60 mg by mouth 2 (two) times daily. Active naloxone (NARCAN) 4 MG/0.1ML LIQD nasal spray Call 911. Do not prime. [place] . May repeat x 1 in 3 minutes in opposite nostril if no or minimal breathing and responsiveness, then every 2-3 minutes as directed. Active NON FORMULARY Turmeric, Yumiko, PEA (otc supplement for pain) 2 capsules every morning. Active aspirin 81 MG EC tablet Take 1 tablet by mouth daily RESUME POD2. 0 tablet 3 Active cyclobenzaprine (FLEXERIL) 10 MG tablet Take 1 tablet by mouth 3 (three) times daily as needed for Muscle spasms. 90 tablet 3 Active valACYclovir (VALTREX) 500 MG tablet 3 Active pregabalin (LYRICA) 75 MG capsule 3 Active oxyCODONE-aceta minophen (PERCOCET) 7.5-325 MG 4 Active LORazepam (ATIVAN) 1 MG tablet PLEASE TAKE ONE TABLET BY MOUTH EVERY 12-24 HOURS WHEN NECESSARY ABDOMINAL PAIN 4 Active amantadine (SYMMETREL) 100 MG tablet 3 Active azelastine-Flut icasone 137-50 MCG/ACT SUSP Instill 2 sprays in each nostril daily. Active memantine (NAMENDA) 10 MG tablet Take 10 mg by mouth 2 (two) times daily. 1 Active methylPREDNISol one (MEDROL DOSPACK) 4 MG tablet follow package directions. 21 tablet 4 Active Active Problems Problem Noted Date Diagnosed Date Lumbar spondylosis 02/07/2023 Cervical spondylosis with radiculopathy 01/13/20 23 Degeneration of cervical intervertebral disc Cervical radiculopathy 12/26/2022 Chronic pain 03/10/2015 Fatigue 03/10/2015 Fibromyalgia 01/01/2015 Social History Tobacco Use Types Packs/Day Years Used Date Smoking Tobacco: Never Smokeless Tobacco: Never Tobacco Cessation:Counseling Given: Not Answered Alcohol Use Standard Drinks/Week Comments Not Currently 0 (1 standard drink = 0.6 oz pur e alcohol) Comments Unknown Sex and Gender Information Value Date Recorded Sex Assigned at Not on file Legal Sex Female 10:24 AM EDT Gender Identity Not on file Sexual Orientation Not on file Last Filed Vital Signs Vital Sign Reading Time Taken Comments Blood Pressure 164/78 02/08/2023 11:11 AM EDT Pulse 91 02/08/2023 11:11 AM EDT Temperature 36.6 C (97.9 F) 03/01/2023 2:49 PM EDT Respiratory Rate 16 02/08/2023 11:1 1 AM EDT Oxygen Saturation 91% 02/08/2023 11: 11 AM EDT Inhaled Oxygen Concentration - - Weight 69.3 kg (152 lb 12.5 oz) 024 10:54 AM EDT Height 162.6 cm (5' 4 ) 01/10/2024 10:5 4 AM EDT Body Mass Index 26.22 01/10/2024 10:54 AM EDT Plan of Treatment Health Maintenance Due Date Last Done Comments Breast Cancer Screening 1960 CT Colonography 1960 Colonoscopy 1960 Colorectal Cancer Screening 1960 FIT-DNA 1960 FIT 1960 FOBT 1960 Hepatitis C Screening 1960 Sigmoidoscopy 1960 Cervical Cancer Screening 11/03/1980 Pneumococcal Vaccines >50 yo (1 of 1 - PCV) 11/03/2009 Shingles (Shingrix) (1 of 2) 11/03/2009 Annual SDOH Screening 06/11/2024 Osteoporosis Screening 11/03/2024 Influenza Vaccine (#1) 2025 03/26/2023 Tdap/Td Vaccine >11 yo (2 - Td or Tdap) 01/01/2034 01/02/2024 RSV 50+ and Completed 04/15/2023 Haemophilus Influenzae Type B (Hib) Vaccine Aged Out No longer eligible b ased on patient's age to complete this topic Hepatitis A (HepA) Vaccine Aged Out N o longer eligible based on patient's age to complete this topic Hepatitis B (HepB) Vaccine Aged Out N o longer eligible based on patient's age to complete this topic Meningococcal ACWY Aged Out No longer eligible based on patient's age to complete this topic Polio (IPV) Aged Out No longer eligi ble based on patient's age to complete this topic Rotavirus (RV) Vaccine Aged Out No lo nger eligible based on patient's age to complete this topic Medical Devices Implanted Type Area Dormitory Counselor Device Identifier Shelf Expiration Date Model / Serial / Lot Graft [place] Dbf 3cc [id number] - [id number] Implanted:Qty: 1 on 02/07/2023 by Darrin Stewart MD at [facility] Grafts N/A: Spine Cervical [employer] 10/19/2024 [id number] / [id number] / Plate [place] 37 [id number] - [id number] Implanted:Qty: 1 on 02/07/2023 by Darrin Stewart MD at [facility] Plates N/A: Neck [employer]ANEK [id number] / / Description:From vendor armas Screw Fix Angl [id number] - [id number] Implanted:Qty: 6 on 02/07/2023 by Darrin Stewart MD at [facility] Screws N/A: Neck [employer] [id number] / / Description:From vendor [employer] Spacer Cerv [id number] - [id number] Implanted:Qty: 1 on 02/07/2023 by Darrin Stewart MD at [facility] Spacer N/A: Neck [employer] SO[employer]ANEK 01/06/2027 [id number] / / [id number] Spacer Cerv [id number] - [id number] Implanted:Qty: 1 on 02/07/2023 by Darrin Stewart MD at [facility] Spacer N/A: Neck [employer] 03/21/2030 [id number] / / [id number] Insurance COUNT INCLUDES THE [facility] Advance Directives Documents on File Type Date Recorded Patient Segmental Paver Installer Expl anation Power of Data Integration Analyst 11/19/2014 9:34 AM Living Will 11/19/2014 9:34 AM * Full Code (Latest Code Status on File) Date Activated Date Inactivated Comments 02/07/2023 5:01 PM 02/08/2023 6:03 PM Care Teams Supervisor Keymodule Assembly Relationship Specialty Start Date End Date Nae Maldonado APRN [address] [facility] [place] [phone] PCP - General Nurse Practitioner Family 12/26/22
--- OUTSIDE RECORDS SUMMARY | 2025-05-29 07:32 | XMS_ITS | Encounter Summary ---
Author Organization [employer] ([place], [place], [place], [place], [place]) Address [address] [place] [address] Care Team Providers Care Engine Cleaner Name Role Phone Unavailable Primary Care Provider Unavailabl e Encounter Details Date Type Department Care Team (Late st Contact Info) Description 01/05/2021 Transcribed Document [facility] [place] [address] [place] [address] ProviderLali MD [address] [place] [address] Social History Tobacco Use Types [...] Conversion Note - Lali ProviderMD - 01/05/2021 2:24 PM CDT [facility] PACU Summary Primary Physician: DEBRA HENDERSON MD-GAE Finalized Date/Time: 01/05/21 16:03:48 Pt. Name: ROXY BLOOMCESAR HallO.B./Sex: 1960 Female Med Rec #: [id number] Physician: DEBRA HENDERSON MD-GAE Financial #: [id number] Pt. Type: E Room/Bed: [facility] Admit/Disch: 01/05/21 10:51:00 - Institution: [facility] PACU Case Times Entry 1 In PACU I 01/05/21 15:09:00 Ready for PACU 01/05/21 16:01:00 Discharge Discharge from PACU 07/28/21 16:04:00 I Finalized By: ERENDIRA CONDE RN Document Signatures Signed By: ERENDIRA CONDE RN 01/05/21 16:03 Electronically signed by Sudha Freeman [facility] Conversion Bilingual Instructor Cerner at 10/01/2022 8:05 PM CDT documented in this encounter Plan of Treatment Not on file documented as of this encounter Visit Diagnoses Not on filedocumented in this encounter
--- OUTSIDE RECORDS SUMMARY | 2025-05-29 07:32 | XMS_ITS | Encounter Summary ---
[facility] Address [address] [place] [address] Care Team Providers Care Base Engineer Name Role Phone Pauline Haynes DO Primary Care Provider Reason for Visit * Reason Comments Med Refill Encounter Details Date Type Department Care Team (Late st Contact Info) Description 05/04/2025 Refill [facility] FAMILY MEDICINE [address] [place] [phone] Pauline Haynes DO [address] [place] [address] Anxiety and depression; Fibromyalgia; Forgetfulness; Vitamin D deficiency Social History Tobacco Use Types Packs/Day Years [...] as of this encounter Visit Diagnoses Diagnosis Anxiety and depression Fibromyalgia Unspecified myalgia and myositis Forgetfulness Other general symptoms Vitamin D deficiency documented in this encounter Care Teams Base Engineer Relationship Specialty Start Date End Date Pauline Haynes DO [address] [place] [address] PCP - General Family Medicine 01/05/25 documented as of this encounter
--- OUTSIDE RECORDS SUMMARY | 2025-05-29 07:32 | XMS_ITS | Encounter Summary ---
Author Organization [facility] Address [address] [place] [address] Care Team Providers Care Tetryl Screen Operator Name Role Phone Pauline Haynes DO Primary Care Provider Reason for Visit * Reason Comments Med Refill Encounter Details Date Type Department Care Team (Late st Contact Info) Description 05/04/2025 Refill [facility] FAMILY MEDICINE [address] [place] [phone] Pauline Haynes DO [address] [address] Social History Tobacco Use Types [...] on filedocumented in this encounter Care Teams Tetryl Screen Operator Relationship Specialty Start Date End Date Pauline Haynes DO [address] [place] [address] PCP - General Family Medicine 01/05/25 documented as of this encounter
--- OUTSIDE RECORDS SUMMARY | 2025-05-29 07:32 | XMS_ITS | Encounter Summary ---
Author [facility] Address [address] [place] [address] Care Team Providers Care Overhead Distribution Engineer Name Role Phone Pauline Haynes DO Primary Care Provider [phone] Reason for Visit * Reason Onset Date Comments CALL BACK REQUEST 03/31/2025 Encounter Details Date Type Department Care Team (Late st Contact Info) Description 03/31/2025 Telephone [facility] FAMILY MEDICINE [address] [place] [address] Pauline Haynes DO [address] [place] [address] CALL BACK REQUEST Social History Tobacco Use Types Packs/Day Years Used Date Smoking Tobacco: Never Smokeless Tobacco: Never Alcohol Use Standard Drinks/Week Comments Never 0 (1 standard drink = 0.6 oz pur e alcohol) PHQ-2 Answer Date Recorded Patient Health Questionnaire-2 Score 0 01/05/2025 Comments No Sex and Gender Information Value Date Recorded Sex Assigned at Female 12/29/2024 12:44 PM EDT Legal Sex Female 1:45 PM EDT Gender Identity Not on file Sexual Orientation Straight 12/29/2024 12 :44 PM EDT documented as of this encounter Miscellaneous Notes * Telephone Encounter - Cristina Mason LPN - 03/31/2025 2:53 PM EDT Pneumococcal 01/05/25. Pt aware * Telephone Encounter - Joan Bauer RegSched Rep - 03/31/2025 9:40 AM EDT Caller: Lupe Grewal Barrett Relationship: Self Best call back number: [phone] What is the best time to reach you: SOON POSSIBLE Who are you requesting to speak with (clinical staff, provider, specific staff member): NURSE What was the call regarding: THE PATIENT NEEDS TO KNOW IF SHE GOT A VACCINE AT HER LAST APPOINTMENTAND IF SO WHAT VACCINE IT WAS documented in this encounter Plan of Treatment Not on file documented as of this encounter Visit Diagnoses Not on filedocumented in this encounter Care Teams Overhead Distribution Engineer Relationship Specialty Start Date End Date Pauline Haynes DO [address] [place] [address] PCP - General Family Medicine 01/05/25 documented as of this encounter
--- OUTSIDE RECORDS SUMMARY | 2025-05-29 07:32 | XMS_ITS | Patient Health Record ---
Author Organization [facility] Juliane alberto Billing Info Address [address] [place] [address] Phone [phone] Care Team Providers Care Setter Molding And Coremaking Machines Name Role Phone Freddie MCGARRYASIFKAMERON Unavailable Allergies Allergen (clinical drug ingredient) Drug/Non Drug Allergy documented on EMR Reaction Allergy Type Onset Date Status Hydrocodone Bitartrate GI distress/itch Drug Allergy Active Reason For Referral No Information Medications Medication SIG (Take, Route, Frequency, Duration) Notes Start Date End Date Diagnosis (ICD Code) Status Ambien 10 MG Tablet 1 tablet at bedtime as needed Orally Once a day Active Cymbalta 60 MG Capsule Delayed Release Particles 1 capsule Orally Once a day; Duration: 30 day(s) Active Cyclobenzaprine HCl 10 mg PRN Active Ergocalciferol 12786 UNIT Capsule 1 capsule Orally; Duration: 30 day(s) Active Lisinopril 10 mg Tablet 1 tablet Orally Once a day; Duration: 30 day(s) Active Flonase 50 MCG/ACT Suspension 1 spray in each nostril Nasally Once a day; Duration: 30 day(s) Active Tramadol-Acetaminophe n PRN Active Social History Tobacco Use: Social History Observation Description Date Details (start date - stop date) Never Smoker NA - NA Sex Observation Social History Observation Description Sex Observation Female Social History Social History Social Info Question Answer Notes Tobacco Status: Patient is a never smoker Alcohol Use: Patient does not use alcohol Additional Details Category Social Info Options Details Social History Marital Status: , Problems Problem Type SNOMED Code ICD Code Dates Problem Status W/U Status Risk Notes Problem Acute frontal sinusitis (17946155) Acute frontal sinusitis (461.1) Active confirmed Problem Sinusitis (05590590) Sinusitis (473.9) Active confirmed Problem General examination of patient (177728355) Routine general medical examination at a health care facility (V70.0) Active confirmed Problem Contact dermatitis (37098077) Contact dermatitis (692.9) Active confirmed Plan Of Treatment Pending Test Test Name Order Date Testosterone ([id number]) 07/26/2012 FSH ([id number]) 07/26/2012 Progesterone ([id number]) 07/26/2012 Estradiol ([id number]) 07/26/2012 CBC, No Differential/Platelet ([id number]) 07/26/2012 Insurance Providers Payer Name Payer Address Payer Phone Subscriber Number Group Number Insured Name Patient Relationship to Insured Coverage Start Date Coverage End Date [employer] PPO MEDICARE [address] [address] [place], [place] [id number] Lupe Grewal Self - patient is the insured 1 0 Medical (General) History Medical History History ICD Code fibromyalgia high cholesterol hypertension Vitamin D deficiency Surgical History Surgery Date(Month/Year) gall bladder tonsillectomy
--- OUTSIDE RECORDS SUMMARY | 2025-05-29 07:32 | XMS_ITS | Data Portability ---
Author Organization BRIANNA VERNON Guzman [facility] Address [address] [place] [address] Care Team Providers Care Principal System Software Engineer Name Role Phone ISABELLA GARNETT Primary Care Provider Assessment Encounter Date Assessment Date Assessment LastModified by Organization Details LastModified Time 07/28/2024 07/28/2024 Discussed the discoloration seen under the eye is actually a loss of volume under the eyes. Best treated by injectable filler. Recommend Dr. Rod berrios Not available 07/28/2024 15:32:49 Plan of Treatment Reminders Order Date Submit Date Provider Last Modified By Organization Details Last Modified Time Details Appointments None recorded. Lab None recorded. Referral None recorded. Procedures None recorded. Surgeries None recorded. Imaging None recorded. Medication Orders glycopyrrol ate 2 mg tablet 2024 025 [email or web address] [facility] [id number], [address] [place], [address], 5 15:39:25 fluorouraci l 5 % topical cream 2023 024 [email or web address] [facility] [id number], [address] [place], [address], 4 10:49:06 hydrocortis one 2.5 % topical ointment 2023 024 [email or web address] [facility] [id number], [address] [place], [address], 5 15:29:53 Patient TargetsNo targets recorded. Patient InstructionsNo instructions recorded. Reason for Referral None Reported. Medical Equipment None Reported. Allergies Allergen ID Allergen Name Allergen Category Reaction Reaction Severity Criticality Documentation Date Start Date Code Code System Note Provider Name and Address Organization Details Recorded Time 545898 hydrocodo ne Not available Not available Not available Not available 02/28/2024 5489 RxNorm NevinIvis Garcia [facility] 4 10:24:17 Medications Name Sig Start Date Stop Date Status Note LastModified by Organization Details LastModified Time fluorouracil 5 % topical cream APPLY A SUFFICIENT AMOUNT TO COVER THE LESIONS IN THE AFFECTED AREA(S) BY TOPICAL ROUTE 2 TIMES PER DAY FOR 2 WEEKS TO THE NOSE. 2023 active Not Available Not Available Not Avai lable hydrocortiso ne 2.5 % topical ointment APPLY A THIN LAYER TO AFFECTED AREA(S) TWO TIMES A DAY FOR 7 DAYS AFTER FLUOROURACI L CREAM TREATMENT active Not Available Not Available No t Available glycopyrrola te 2 mg tablet TAKE ONE TABLET BY MOUTH THREE TIMES A DAY NEEDED 2024 active Not Available Not Available Not Avai lable tramadol active Not Available Not Avai lable Not Available cyclobenzapr ine active Not Available Not Available Not Available azelastine active Not Available Not Av ailable Not Available donepezil active Not Available Not Rachana ilable Not Available memantine active Not Available Not Rachana ilable Not Available duloxetine active Not Available Not Av ailable Not Available bimatoprost 0.03 % drops with applicator, eyelash base APPLY 1 APPLICATORF UL TOPICALLY AT BEDTIME 2023 active Not Available Not Available Not Avai lable turmeric active Not Available Not Avai lable Not Available Vitals None Recorded Social History Question Answer Notes LastModified by Organizat ion Details LastModified Time Tobacco Smoking Status [facility] 02/28/2024 10:26:18 Sunscreen Use? Yes [email or web address] Informatio n not available 02/28/2024 Tanning Bed Use No [email or web address] Informati on not available 02/28/2024 What Was The Date Of Your Most Recent Tobacco Screening? 03/25/2025 [email or web address] Information not available 03/25/2025 Has Tobacco Cessation Counseling Been Provided? No [email or web address] Information not available 02/28/2024 Sex: Unknown Functional Status Question Answer Note LastModified by Organizat ion Details LastModified Time Do you use any illicit or recreational drugs? No [email or web address] Information not available 02/28/2024 Do you or have you ever used any other forms of tobacco or nicotine? No [email or web address] Information not available 02/28/2024 What is your level of alcohol consumption? None [email or web address] Information not available 02/28/2024 Mental Status None recorded. Family History Relationship Description Onset Age of this Age Resolved Age Notes LastModified by Organization Details LastModified Time Father No current problems or disability [email or web address] Not available 02/09 10:26:27 Mother No current problems or disability [email or web address] Not available 02/09 10:26:27 Medical History No medical history recorded. Gynecological HistoryNo gynecological history recorded. Obstetrics History GPAL:G 0 P 0 0 0 0 Past Encounters Encounter ID Performer Location Encounter Start Date Encounter Closed Date Diagnosis/Indication Diagnosis SNOMED-CT Code Diagnosis ICD10 Code Diagnosis IMO Codes Diagnosis Note [id number] [facility] [address] 09/14/2016 06:51:46 09/14/2016 06:51:46 [id number] NOEL DE LEÓN [address] [address] [place] [address] 02/28/2024 10:14:55 02/28/2024 10:37:16 Actinic keratosis 214734900 L57.0 Dr. Krause tx [place] at her last visit with LN2. Pnt states she will have a dry spot come and go however it was not visible today. Rx Efudex has been shown to decrease the amount of AKs and prevent SCC developmen t.Rx Efudex (5-fluorou racil) 5% cream prescribed . Apply to areas of pre-cancer s BID for 2 weeks.Hydr ocortisone 2.5% topical ointment for BID x 1-2 weeks after 14 days of 5-FU cream treatment. SE reviewed. LT use discussed. Avoid eye area and allow to absorb for at least 1 hour before bedtime. Expect redness, crusting, itching, and burning.Th erapy may be stopped when crusting is prominent or at any time if symptoms are intolerabl e.Call the office with any concerns about symptoms as we can prescribe medication to calm the reaction if needed.Genaro id sun exposure during your treatment. Can cause or bring out cold sores. Call if these arise. It will take several weeks for your skin to heal once the therapy has ended. Pigmentary change may occur. Pnt has her apt with Dr. Krause in he can recheck the area after tx with 5FU. History of malignant neoplasm of skin 817041773 Z85.828 The scar is clear with no evidence of recurrence .Cont to monitor for any changes. [id number] KHAI KRAUSE MD [address] [address] 07/28/2024 15:04:22 07/28/2024 15:39:16 History of malignant neoplasm of skin 242519651 Z85.828 L90.5 - No evidence of recurrence today- Call with any worrisome lesions or if treated lesions return- Return at regular intervals for skin exam as recommende dOk to continue rx 5FU until 14 day farnaz on 07/30/2024, no erythema or crusting seen on the area of applicatio n. No need to start rx hydrocorti sone. Multiple b enign melanocytic nevi 658126880 D22.5 - Benign lesions seen on exam today- SPF 30 or higher broad-spec trum sunscreen recommende d with re-applica tion every 2 hours- Discussed sun protection measures, including wide-brimm ed hat, sun-protec tive clothing, and avoidance of sun during peak hours of 10am-4pm- Instructed to monitor for changes and to call us for appointmen t with any changing or worrisome lesions Seborrheic keratosis 394 002922 L82.1 - Benign overgrowth s of skin - Hereditary Senile angioma 4894598 I 78.1 - Benign blood vessel growths - Hereditary Solar lentigo 03410575 L 81.4 - Benign brown spots - Sun-induce d Primary fo yasmeen hyperhidrosis 534263405 L74.519 The nature of the diagnosis was discussed further.Rx refilled glycopyrro late 2 mg tablet 1 PO TID PRN. dental examsFup with change or concerns [id number] NOEL DE LEÓN [facility] [address] [place] [address] 03/25/2025 10:14:04 03/25/2025 12:15:33 Solar degeneration 82312911 L57.8 766 The nature of the diagnosis was discussed. Pt to use 5FU on the nose this Winter, she already has Rx at home, twice per day for two weeks. (She has done in the past without much of a reaction.I f pt needs more, she can call at ext [phone]. History of malignant neoplasm of skin excluding melanoma 338780251 Z85.699 7524782 The scar is clear with no evidence of recurrence . (MOHs was done ~ [address] Cueva)Cont. to monitor for any changes.Pn t is looking to have scar evaluated with plastic surgeon. I rec Dr. Tee. Health Concerns Section Related Observation LastModified by Organization Detai ls LastModified Time None Recorded Concern Status LastModified by Organization Details LastModified Time None Recorded Advance Directives Directive None Recorded Payers Insurance Date Sequence Insurance Name Policy Number Policy Raza Covered Member ID Raza Member ID Guarantor Name 03/25/2025 1 [employer] (MEDICARE REPLACEMENT/ ADVANTAGE - PPO) Lupe Grewal [id number] Lupe Uri 03/25/2025 1 [place] [id number] Lupe Grewal [id number] Lupe Grewal Notes Date Note Type Note Provider Name and Address Organization Details Recorded Time 02/28/2024 text/html I am here to have a spot checked. Location: NoseDuration: 1-2 monthsReports: I had BCC on this same spot and I believe it is returning. NOEL DE LEÓN [facility] [place], [address], [facility] 02/28/2024 10:48:54 07/28/2024 text/html I've been using the 5FU for 12 days on my noseAnnualHx of BCC-NoseBraye rxed 5FU for the nose 02/2024.Pt is on rx glycopyrrolate PRN for hyperhidrosis on the scalp. Uses this every few weeks KHAI KRAUSE MD [address] [place], [address], [facility] 07/28/2024 15:41:12 03/25/2025 text/html ROS as noted in the HPI area of concernlocation: noseduration: over a yeartx: 5FU in Jul 2024, MOHsreports: spot used to have a bubble on it and pt is worried it could be a BCC NOEL DE LEÓN [address] [place], [address], [facility] 03/25/2025 13:48:03 OBGyn Episode No OBEpisode recorded.
--- OUTSIDE RECORDS SUMMARY | 2025-05-29 07:32 | XMS_ITS | Patient Health Record ---
Author Organization [facility] Juliane alberto Billing Info Address [address] [place] [address] Phone [phone] Care Team Providers Care Weatherization Field Technician Name Role Phone GEORGIANA HYMAN MD Unavailable Unavailable Reason For Referral No Information Medications Medication SIG (Take, Route, Frequency, Duration) Notes Start Date End Date Diagnosis (ICD Code) Status Cymbalta 60 MG Capsule Delayed Release Particles 1 capsule Orally Once a day; Duration: 30 day(s) Active Inderal XL 80 MG Capsule Extended Release 24 Hour 1 capsule Orally TID Active Oxycodone HCl 10 MG Tablet 1 tablet as needed Orally TID Active BusPIRone HCl 5 MG Tablet 1 tablet Orally Twice a day Active Social History Sex Observation Social History Observation Description Sex Observation Female Problems Problem Type SNOMED Code ICD Code Dates Problem Status W/U Status Risk Notes Problem Palpitations (58042124) Palpitations (R00.2) Added On:2020 Active confirmed Problem Depression (832368528) Depression (F32.9) Added On:2020 Active confirmed Problem Anemia (050949053) Anemia (D64.9) Added On:2020 Active confirmed Problem Fibromyalgia (801677291) Fibromyalgia (M79.7) Added On:2020 Active confirmed Problem Chest pain (62883536) Chest pain (R07.9) Added On:2020 Active confirmed Problem Basal cell carcinoma (5740691) Basal cell carcinoma (C44.91) Added On:2020 Active confirmed Problem Dyspnea on exertion (15462869) Dyspnea on exertion (R06.09) Added On:2020 Active confirmed Plan Of Treatment Pending Test Test Name Order Date EKG-W/ INTERP (79981) 09/21/2020 Future Test Test Name Order Date ECHOCARDIOGRAM (56703) 09/21/2020 Insurance Providers Payer Name Payer Address Payer Phone Subscriber Number Group Number Insured Name Patient Relationship to Insured Coverage Start Date Coverage End Date LANDON HUNTER [address] [place], [place] [id number] Lupe Grewal Self - patient is the insured 1 Medical (General) History Medical History History ICD Code Anemia D64.9 Basal cell carcinoma C44.91 Fibromyalgia M79.7 Depression F32.9 Surgical History Surgery Date(Month/Year) cholecystectomy tonsillectomy adenoidectomy Excision of cyst of the breast Excision of bunion
--- OUTSIDE RECORDS SUMMARY | 2025-05-29 07:32 | XMS_ITS | Clinical Summary ---
Author Organization Healthcare Address [address] [place] [address] Care Team Providers Care Control Panel Operator Crude Unit Name Role Phone Marivel Colón LPN Unavailable Unavailabl e Pcp, No Primary Care Provider Unavailabl e Allergies Active Allergy Reactions Criticality Noted Date Comments Hydrocodone Bitartrate Er Unknown - Sheila ent states they do not know rxn details Low 09/04/2014 Medications donepezil (Aricept) 5 MG tablet Take 1 tablet (5 mg) by mouth every night. Active cyclobenzaprine (Flexeril) 10 MG tabletIndication s:Fibromyalgia TAKE ONE TABLET BY MOUTH DAILY NEEDED FOR MUSCLE SPASMS 30 tablet 3 Active DULoxetine (Cymbalta) [address] capsuleIndicatio ns:Generalized anxiety disorder,Mild episode of recurrent major depressive disorder (CMS/HCC) Take 1 capsule (60 mg) by mouth 2 (two) times a day. Do not crush, split, or chew. 180 capsule 3 4 Active traZODone (Desyrel) 50 MG tabletIndication s:Insomnia, unspecified type Take 1 tablet (50 mg) by mouth every night. 90 tablet 3 4 Active glycopyrrolate (Robinul) 2 MG tablet 4 Active propranolol (Inderal) 10 MG tabletIndication s:Generalized anxiety disorder TAKE 1 TABLET BY MOUTH 3 TIMES A DAY IF NEEDED FOR STUTERING 45 tablet 2 5 Active oxyCODONE-acetam inophen (Percocet) 7.5-325 MG tablet Take 1 tablet by mouth every 4 hours as needed for severe pain. Active busPIRone (Buspar) 10 MG tablet Active dicyclomine (Bentyl) 10 MG capsule Take 1 capsule by mouth as needed. Active ergocalciferol 1.25 MG (77542 UT) capsule 1 capsule. Active estradiol (Estrace) 0.5 MG tablet 1 PATCH; once a week Active predniSONE 10 MG (21) tablet therapy pack Active progesterone (Prometrium) 200 MG capsule Active traMADol (Ultram) 50 MG tablet Active Active Problems Problem Noted Date Diagnosed Date Lumbar spondylosis 08/09/2022 Lumbosacral spondylosis without myelopathy 08/09 Joint pain 03/08/2022 Generalized anxiety disorder 08/22/2021 Prediabetes 11/01/2020 Dementia 06/22/2020 Allergic rhinitis 02/13/2020 Depression 04/03/2019 Benign essential hypertension 09/14/2014 Fibromyalgia 09/05/2014 Resolved Problems Problem Noted Date Diagnosed Date Resolved Date Acute recurrent maxillary sinusitis 05/23/2021 08/22/2021 Acute non-recurrent frontal sinusitis 01/31/2021 05/23/2021 Elevated liver enzymes 11/01/202005/23 GERD (gastroesophageal reflux disease) 11/01/2020 11/24/2021 Anxiety 09/05/2014 08/22/2021 Insomnia 09/05/2014 03/01/2025 Encounters Date Type Department Care Team Description 03/26/2025 12:00 PM EDT Office Visit [facility] [place] [facility] [address] [place], [place] [address] [address] Froy Stanley MD Memory loss (Primary Dx) 03/26/2025 Travel from Last 3 Months Immunizations Immunization Administration Dates Next Due Influenza, injectable, MDCK, preservative free, quadrivalent 03/26/2023 Influenza, injectable, quadrivalent, preservativ e free 04/15/2022,02/20/2020 Influenza, seasonal, injectable 03/14/2021 Pfizer Covid-19 Vaccine 12y+ , Nitish Protein, PF, Jack-Sucrose 03/25/2023 Rsvpref, Recombinant, Protein Subunit, Adjuvent 04/15/2023 Tdap 01/02/2024 Zoster, Recombinant 10/09/2020,05/28/2020 Zoster, live 10/09/2020 Social History Tobacco Use Types Packs/Day Years Used Date Smoking Tobacco: Never Smokeless Tobacco: Never Tobacco Cessation:Counseling Given: Not Answered Alcohol Use Standard Drinks/Week Comments Never 0 [...] 01/02/2024 How often do you attend chur or gnosticism services? Never 01/02/2024 Do you belong to any clubs o r organizations such as advent groups, unions, fraternal or athletic groups, or [...] How often do you attend chur or gnosticism services? Never 12/29/2024 Do you belong to any clubs o r organizations such as advent groups, unions, fraternal or athletic groups, or [...] more drinks on one occasion? Never 12/29/2024 [facility] - Occupational Stress [...] any time in the past 12 m [facility], were you homeless or living in a fdc (including now)? No 12/29/2024 Safety and Environment [...] Sign Reading Time Taken Comments Blood Pressure 115/58 03/26/2025 11:51 AM EDT Pulse 92 03/26/2025 11:51 AM EDT Temperature 36.7 C (98 F) 11/09/2022 1:48 PM EDT Respiratory Rate 18 03/26/2025 11:51 AM EDT Oxygen Saturation 94% 03/26/2025 11:51 AM EDT Inhaled Oxygen Concentration - - Weight 66.2 kg (146 lb) 03/26/2025 11:51 AM EDT Height 162.6 cm (5' 4 ) 03/26/2025 11:51 AM EDT Body Mass Index 25.06 03/26/2025 11:51 AM EDT Plan of Treatment Upcoming Encounters Date Type Department Care Team (Late st Contact Info) Description 07/07/2025 11:15 AM EST Consult [facility] [address] [place] [address] Cesar Tee MD [address] [place] [address] Health Maintenance Due Date Last Done Comments [facility]-Bone Density Scan 1960 [facility]-Medicare Annual Wellness (AWV) 1960 [facility]-Infant/Child/Adol SDOH Screenings 1960 [facility]-Pap Smear 11/03/1980 [facility]-Cervical Cancer Screening 11/03/1989 [facility]-HPV/Cotest 11/03/1989 CT Colonography 11/03/2004 FIT-DNA 11/03/2004 FIT 11/03/2004 FOBT 11/03/2004 Sigmoidoscopy 11/03/2004 [facility]-Zoster Vaccines (3 of 3) 12/04/202006/2020, 10/09/2020, 05/28/2020 [facility]-Depression Screening 01/01/2025 01/02/2024 [id number] Vaccine ( season) 2025 04/04/2024, 03/25/2023, 12/28/2021, Additional history exists [facility]-Influenza Vaccine (#1) 02/09/202504/04, 03/26/2023, 04/15/2022, Additional history exists [facility]- SDOH Screenings 07/01/2025 [facility]-Adult SDOH Screenings 07/01/2025 12/29/2024 [facility]-Diabetes: Hemoglobin A1C 01/12/202609/2024, 01/11/2024, 09/11/2022, Additional history exists [facility]-Breast Cancer Screening 03/24/2026 03/24/2024, 1 06/20/2021 Colonoscopy 05/09/2026 05/09/2016 [facility]-Colorectal Cancer Screening 05/09/2026 [facility]-DTaP,Tdap,and Td Vaccines (2 - Td or Tdap) 01/01/2034 01/02/2024 [facility]-RSV Vaccine: 60+ Years or Completed 04/15/2023 [facility]-Hepatitis C Screening Completed 01/11/2024 [facility]-Pneumococcal Vaccine: 50+ Years Completed 01/05/2025 [facility]-Obesity Intervention Completed 025, 02/27/2024, 01/02/2024, Additional history exists HPV Vaccines (No Doses Required) Completed [facility]-HIB Vaccines Aged Out No longer e ligible based on patient's age to complete this topic [facility]-Hepatitis A Vaccines Aged Out No longer eligible based on patient's age to complete this topic [facility]-IPV Vaccines Aged Out No longer e ligible based on patient's age to complete this topic [facility]-Rotavirus Vaccines Aged Out No lo nger eligible based on patient's age to complete this topic Procedures Procedure Name Priority Date/Time Associated Diagnosis Comments MAMMOGRAPHY EXTERNAL RESULTS 03/24/2024 HEPATITIS C ANTIBODY W/REFLEX TO HCV QUANT PCR Routine 01/11/2024 7:56 AM EDT Need for hepatitis C screening test HEMOGLOBIN A1C Routine 01/11/2024 7:56 AM EDT Routine general medical examination at a [facility] care facility Prediabetes Benign essential hypertension COLONOSCOPY EXTERNAL RESULT 05/09/2016 from Last 3 Months or Most Recently Relevant to Health Maintenance Results * Mammography External Results (03/24/2024) Anatomical Region Laterality Modality Mammography Narrative 03/24/2024 Ordered by an unspecified provider. us External Provider IMG BI PROCEDURES Final Result * Hepatitis C Antibody w/Reflex to HCV Quant PCR (01/11/2024 7:56 AM EDT) Hepatitis C Antibody Negative Negative 01/11/2024 7:47 PM EDT [facility] Blood Venous blood specimen / Unknown Venipuncture / Unknown 01/11/2024 7:56 AM EDT 01/11/2024 7:56 AM EDT Nae Maldonado APPLICATIONS SYSTEMS ANALYST LAB BLOOD ORDERABLES Final Resu lt Performing Organization Address [facility] Co de Phone Number [facility]ALTH[facility]ARE [facility] [address] [place] [address] * (ABNORMAL) Hemoglobin A1c (01/11/2024 7:56 AM EDT) Hemoglobin A1c 6.1(H) <5.7 % 01/11/2024 1:08 PM EDT [facility] Blood Venous blood specimen / Unknown Venipuncture / Unknown 01/11/2024 7:56 AM EDT 01/11/2024 7:56 AM EDT Narrative [facility] - 01/11/2024 1:08 PM EDT HA1C Interpretive Data: Diagnosis of Diabetes: Diabetic > or = 6.5% Pre-diabetic 5.7 to 6.4% Non-diabetic < or = 5.6% Glycemic Targets for Type I and Type II Diabetics: Non- Adults <7.0% Adults <6.0% Children and Adolescents <7.5% Source: [place] [employer]. Standards of medical care in diabetes,2017. Diabetes Care.2017:40 (suppl 1):S1-S135. HbA1c assay performed by an ion-exchange chromatography method that is certified traceable to the DCCT. Nae Maldonado APRN LAB BLOOD ORDERABLES Final Resu lt Performing Organization Address [facility] Co de Phone Number [facility] [address] [place] [address] * COLONOSCOPY EXTERNAL RESULT (05/09/2016) Anatomical Region Laterality Modality Endoscopy Narrative 05/09/2016 Ordered by an unspecified provider. External Provider GI PROCEDURE ORDERABLES Final Result from Last 3 Months or Most Recently Relevant to Health Maintenance Insurance [employer] MEDICARE Care Teams Control Panel Operator Crude Unit Relationship Specialty Start Date End Date Pcp, [facility] [address] [place] [address] PCP - General Family Medicine 03/12/25 Marivel Colón LPN VALUE-BASED TRANSFORMATION PROGRAM None TCM Nurse 12/25/24
--- OUTSIDE RECORDS SUMMARY | 2025-05-29 07:32 | XMS_ITS | Encounter Summary ---
Author Organization Healthcare Address [address] [place] [address] Care Team Providers Care Coil Cleaner Name Role Phone Georgiana Jarvis MD Primary Care Provider + [phone] Nae Maldonado APRN Primary Care Provider [phone] Marievl Colón LPN Unavailable Unavailabl e Marivel Colón LPN Unavailable Unavailabl e Pcp, No Primary Care Provider Unavailabl e Reason for Referral * Imaging (Routine) - Canceled Specialty Diagnoses / Procedures Referred By Contac t Referred To Contact Diagnoses Right upper quadrant abdominal pain Procedures MR Abdomen MRCP w and wo IV Contrast Georgiana Jarvis MD [address] [place] [address] Phone: tel: fax: Referral ID Status Reason Start Date Expiration Date V isits Requested Visits Authorized [id number] Canceled 11/15/2020 05/14/2021 1 1 Encounter Details Date Type Department Care Team (Latest Contact Info) Description 11/12/2020 Outside Procedure External Location [address] [place] [id number] Georgiana Jarvis MD [address] [place] [address] Right upper quadrant abdominal pain (Primary Dx) Social History Tobacco Use Types Packs/Day Years Used Date Smoking Tobacco: Never Comments Unknown Sex and Gender Information Value Date Recorded Sex Assigned at Not on file Legal Sex Female 6:25 PM EDT Gender Identity Not on file Sexual Orientation Not on file documented as of this encounter Plan of Treatment Upcoming Encounters Date Type Department Care Team (Late st Contact Info) Description 07/07/2025 11:15 AM EST Consult [facility] [address] [place] [address] Cesar Tee MD [address] [place] [address] Scheduled Orders Name Type Priority Associated Diagnoses Orde r Schedule MR Abdomen MRCP w and wo IV Contrast Imaging Routine Right upper quadrant abdominal pain Ordered: 11/15/2020 documented as of this encounter Procedures Procedure Name Priority Date/Time Associated Diagnosis Comments US ABDOMEN RUQ 11/12/2020 8:24 AM EDT documented in this encounter Results * US Abdomen RUQ (11/12/2020 8:24 AM EDT) Anatomical Region Laterality Modality Gallbladder Ultrasound 11/12/2020 8:24 AM EDT Narrative 11/15/2020 7:53 [place] [address] Name: KWAME BLOOM Exam Date: 11/12/2020 : 1960 Age 60 Gender: F Physician: GEORGIANA JARVIS Facility: [facility] Facility HSV: Outpatient Exam: RT UPPER QUADRANT US Right upper quadrant ultrasound History: Elevated liver enzymes Findings: Gallbladder is absent. The pancreas is partially obscured by bowel gas. Liver appears normal in size and echogenicity. There are no liver lesions. The intrahepatic IVC is patent. Common bile duct measures 17 mm transversely. There are no prior studies for comparison. There is no intrahepatic bile duct dilatation. Impression: Dilated common bile duct which may relate to postcholecystectomy state. However, for further evaluation, follow-up MRCP may be useful. Dictated By: MEÑO KEEN Transcribed By: Fatou Paul Transcribed On: 11/12/2020 9:53 AM Electronically signed by: MEÑO KEEN 11/15/2020 Thank you for referring KWAME BLOOM to [facility]. Legally authenticated by OSMANI WILDER 2020-11-15 07:38:35 Procedure Note Provider, Generic Kersey - 11/15/[address] [address] Name: KWAME BLOOM Exam Date: 11/12/2020 : 1960 Age 60 Gender: F Physician: GEORGIANA JARVIS Facility: [facility] Facility HSV: Outpatient Exam: RT UPPER QUADRANT US Right upper quadrant ultrasound History: Elevated liver enzymes Findings: Gallbladder is absent. The pancreas is partially obscured by bowel gas. Liver appears normal in size and echogenicity. There are no liver lesions. The intrahepatic IVC is patent. Common bile duct measures 17mm transversely. There are no prior studies for comparison. There is no intrahepatic bile duct dilatation. Impression: Dilated common bile duct which may relate topostcholecystectomy state. However, for further evaluation, follow-up MRCP may be useful. Dictated By: MEÑO KEEN Transcribed By: Fatou Paul Transcribed On: 11/12/2020 9:53 AM Electronically signed by: MEÑO KEEN 11/15/2020 Thank you for referring KWAME BLOOM to [facility]. Legally authenticated by OSMANI WILDER 2020-11-15 07:38:35 us Georgiana Jarvis MD IM US PROCEDURES Final Resu lt documented in this encounter Visit Diagnoses Diagnosis Right upper quadrant abdominal pain- Primary documented in this encounter Care Teams Coil Cleaner Relationship Specialty Start Date End Date Georgiana Jarvis MD [address] [place] [phone] PCP - General 10/22/20 11/28/21 Nae Maldonado APRN [address] [place] [phone] PCP - General Family Medicine 11/29/21 02/02/25 Pcp, [facility] [address] [place] [address] PCP - General Family Medicine 03/12/25 Marivel Colón LPN VALUE-BASED TRANSFORMATION PROGRAM None TCM Nurse 12/25/24 Marivel Colón LPN VALUE-BASED TRANSFORMATION PROGRAM None Licensed Practical Nurse 12/25/24 02/02/25 documented as of this encounter
--- OUTSIDE RECORDS SUMMARY | 2025-05-29 07:32 | XMS_ITS | Clinical Summary ---
Author Organization [facility] Address [address] [place] [address] Care Team Providers Care Wastewater Treatment Operator Name Role Phone Matheus James MD, Lester Mitchell Primary Care Provid er Unavailable Allergies No known active allergies Medications oxyCODONE-aceta minophen (PERCOCET) 7.5-325 mg tablet TAKE 1 TABLET BY MOUTH EVERY 8 HOURS 12/17/2020 Active cyclobenzaprine (FLEXERIL) 10 MG tablet Take 1 tablet by mouth. 06/22/2020 Active traZODone (DESYREL) 50 MG tablet 12/17/2020 Active propranoloL (INDERAL) 10 MG tablet TAKE 1 TABLET BY MOUTH THREE TIMES A DAY NEEDED FOR ANXIETY 11/28/2020 Active progesterone (PROMETRIUM) 200 MG capsule TAKE 1 CAPSULE BY MOUTH EVERY DAY 11/15/2020 Active memantine (NAMENDA) 10 MG tablet Take 1 tablet by mouth. 06/22/2020 Active busPIRone (BUSPAR) 10 MG tablet TAKE 1 TABLET BY MOUTH TWICE A DAY 12/11/2020 Active DULoxetine (CYMBALTA) 60 MG capsule Take 1 capsule by mouth. 11/12/2020 Active Social History Tobacco Use Types Packs/Day Years Used Date Smoking Tobacco: Never Smokeless Tobacco: Never Alcohol Use Standard Drinks/Week Comments Not Asked 0 (1 standard drink = 0.6 oz pur e alcohol) Comments No Sex and Gender Information Value Date Recorded Sex Assigned at Not on file Legal Sex Female 10:28 AM EST Gender Identity Not on file Sexual Orientation Not on file Last Filed Vital Signs Vital Sign Reading Time Taken Comments Blood Pressure 136/88 01/03/2021 3:52 PM EDT reports took sudafed which makes her blood pressure high Pulse 100 01/03/2021 3:52 PM EDT Temperature 37.2 C (99 F) 01/03/2021 3:52 PM EDT Respiratory Rate 18 01/03/2021 3:52 PM EDT Oxygen Saturation 96% 01/03/2021 3:5 2 PM EDT Inhaled Oxygen Concentration - - Weight 72.6 kg (160 lb) 01/03/2021 3:52 PM EDT Height 162.6 cm (5' 4 ) 01/03/2021 3:52 PM EDT Body Mass Index 27.46 01/03/2021 3:52 PM EDT Plan of Treatment Not on file Medical Devices Not on file Care Teams Wastewater Treatment Operator Relationship Specialty Start Date End Date Lester Jarvis Jr., MD PCP - General Internal Medicine 01/03/21
--- OUTSIDE RECORDS SUMMARY | 2025-05-29 07:32 | XMS_ITS | Referral Summary ---
Author Organization [facility] ([place], [place], [place], [place], [place]) Address [address] [place] [address] Care Team Providers Care Program/Music Director Name Role Phone Unavailable Primary Care Provider Unavailabl e Social History Tobacco Use Types Packs/Day Years Used Date Smoking Tobacco: Never Assessed Comments Unknown Sex and Gender Information Value Date Recorded Sex Assigned at Female 12/06/2021 8:53 PM CDT Legal Sex Female 8:53 PM CDT Gender Identity Female 12/06/2021 8:53 PM CDT Sexual Orientation Not on file Plan of Treatment Not on file
--- OUTSIDE RECORDS SUMMARY | 2025-05-29 07:32 | XMS_ITS | CCD ---
Author Name Interface, [id number] Address [address] [place], [place] [id number] [facility] Address [address] [facility] [address] [place] [id number] Care Team Providers Care Stemmer Machine Name Role Phone Ramírez Flanagan MD Unavailable Unavailable Reason for Visit Social History Date Name Value 09/04/2019 Sex Female
--- OUTSIDE RECORDS SUMMARY | 2025-05-29 07:33 | XMS_ITS | Encounter Summary ---
Author Organization [facility] Address [address] [place] [address] Care Team Providers Care Hot Iron Worker Name Role Phone Nae Maldonado APRN Primary Care Provider Marivel Colón LPN Unavailable Unavailabl e Marivel Colón LPN Unavailable Unavailabl e Pcp, No Primary Care Provider Unavailabl e Reason for Visit * Reason Comments Med Refill Encounter Details Date Type Department Care Team (Late st Contact Info) Description 08/02/2022 Refill [facility] [address] [place] [address] Nae Maldonado APRN [address] [place] [address] Mild episode of recurrent major depressive disorder (CMS/HCC); Generalized anxiety disorder Social History Tobacco Use Types Packs/Day Years Used Date Smoking Tobacco: Never Smokeless Tobacco: Never PHQ-2 Answer Date Recorded Patient Health Questionnaire-2 Score 0 03/08/2022 Comments Unknown Sex and Gender Information Value Date Recorded Sex Assigned at Not on file Legal Sex Female 6:25 PM EDT Gender Identity Not on file Sexual Orientation Not on file documented as of this encounter Miscellaneous Notes * Telephone Encounter - Katelin Restrepo - 08/02/2022 1:56 PM EST Per protocol, 1 medication(s), duloxetine, has been approved for 90 day supply with 0 refill(s) to [facility] pharmacy. Patient must schedule an appointment and be seen in clinic for additional refills. documented in this encounter Plan of Treatment Upcoming Encounters Date Type Department Care Team (Late st Contact Info) Description 07/07/2025 11:15 AM EST Consult [facility] [address] [place] [address] Cesar Tee MD [address] [place] [address] documented as of this encounter Visit Diagnoses Diagnosis Mild episode of recurrent major depressive disorder (CMS/HCC) Generalized anxiety disorder documented in this encounter Additional Health Concerns Assessment Noted Time A fall risk assessment has been complete d for the patient 02/24/2021 11:05 AM EDT documented as of this encounter Care Teams Hot Iron Worker Relationship Specialty Start Date End Date Nae Maldonado APRN [address] [place] [address] PCP - General Family Medicine 11/29/21 02/02/25 Pcp, [facility] [address] [place] [address] PCP - General Family Medicine 03/12/25 Marivel Colón LPN VALUE-BASED TRANSFORMATION PROGRAM None TCM Nurse 12/25/24 Marivel Colón LPN VALUE-BASED TRANSFORMATION PROGRAM None Licensed Practical Nurse 12/25/24 02/02/25 documented as of this encounter
--- OUTSIDE RECORDS SUMMARY | 2025-05-29 07:33 | XMS_ITS | Encounter Summary ---
Author Organization [employer] ([place], [place], [place], [place], [place]) Address [address] [place] [id number] Care Team Providers Care Healthcare Sales Representative Name Role Phone Unavailable Primary Care Provider Unavailabl e Encounter Details Date Type Department Care Team (Late st Contact Info) Description 01/05/2021 Transcribed Document [facility] [place] [address] [place] [address] ProviderLali MD [address] [place] [address] Social History Tobacco Use Types [...] Conversion Note - Lali ProviderMD - 01/05/2021 3:41 [place] [address] WOLF LUPE L :1960 Visit Time:01/05/2021 What to do next Instructions From Your Care Team Diet after Discharge: Resume usual diet as tolerated, Do not drink any alcoholic beverages, Activity after Discharge: Rest and relax today, No strenuous activity Driving after Discharge: Do not drive for 24 hours May Return to Work/School: Tomorrow Showering/Bathing: May shower Notify Provider of: with any questions or concerns Follow-Up Appointments Follow Up with DEBRA HENDERSON MD-DINO When Within As needed Where: [address] [place] [address]- Medications What How Much When Instructions Next Dose acetaminophen-oxyCODONE (acetaminophen-oxyCODONE 325 mg-7.5 mg oral tablet) 1 Tablet(s) Oral Three Times A Day busPIRone 10 Milligram(s) Oral Two Times A Day cyclobenzaprine 10 Milligram(s) Oral As needed for Muscle Spasms DULoxetine 60 Milligram(s) Oral Every Day loratadine 10 Milligram(s) Oral Every Day memantine 10 Milligram(s) Oral Two Times A Day progesterone 200 Milligram(s) Oral Every Day propranolol 10 Milligram(s) Oral As needed for Other (See Comment) for a stutter traZODone 50 Milligram(s) Oral At Bedtime Take your medications faithfully. Do NOT skip medication. Do NOT stop taking medications without the direction of a physician. Carry a list of your medications with you at all times, and take this medication list with you to your first follow up visit. Report any side effects. Avoid herbal remedies unless discussed with your physician. As part of your treatment plan, your physician may have prescribed a limited course of a controlled substance. This medication may be given to help people with moderate or severe pain or for other medical conditions, but there are risks involved with treatment. Common side effects may include nausea, constipation, drowsiness, sweating, itching, dry mouth, and rash. More serious side effects may include cognitive and motor impairment, like problems with thinking, concentrating, alertness, and movement (e.g. slowed reflexes), and driving and operating heavy machinery can be dangerous. It is important for you to talk to your physician if you have these side effects or questions. These controlled substances can produce physical dependence and be habit-forming if taken for an extended period of time, which means that the body has gotten used to them and may experience withdrawal symptoms if they are abruptly stopped. Withdrawal symptoms can include runny nose, sweating, goose bumps, diarrhea, abdominal cramping, rapid heartbeat, difficulty sleeping, and nervousness. Please dispose of unused and medications per pharmacy guidance. Education Materials Monitored Anesthesia Care, Care After These instructions [...] eating solid foods. General instructions ??? Take [id number] and prescription medicines only as told by [...] provider. Document Revised: 08/26/2018 Document Reviewed: 09/17/2016 [employer] Patient Education ?? 2020 [employer] Endoscopic Retrograde Cholangiopancreatogram, Care After This sheet [...] Follow these instructions at home: ??? Take [id number] and prescription medicines only as told by [...] care provider if you have signs of infection???such as chills or feeling unwell???or if you have pain that does not [...] provider. Document Revised: 05/10/2018 Document Reviewed: 04/16/2017 [employer] Patient Education ?? 2020 [employer]. Emergency Awareness and Preventative Care STROKE is an EMERGENCY Every Minute Counts Act FAST and Check for these signs: FACE Does the face look uneven? ARM Does one arm drift down? SPEECH Does their speech sound strange? TIME Call at any sign of stroke Stroke Risk Factors Atrial Fibrillation (irregular heartbeat) Diabetes Family history of stroke Heart Disease Heavy alcohol use High Blood Pressure High Cholesterol Physical inactivity and obesity Smoking Cigarette Smoking The facts are clear, cigarette smoking will shorten your life. Smoking can cause many illnesses along the way. As a healthcare provider, we recommend that you stop smoking. Assistance with quitting is available by contacting 0-121-IDJS-NOW. This is a free resource providing counseling, support, and referral. Or you may contact your personal physician. National Suicide Prevention Lifeline: The National Suicide Prevention Lifeline is a national network of local crisis centers that provides free and confidential emotional support to people in suicidal crisis or emotional distress 24 hours a day, 7 days a week. Don't Wait! Stop a Heart Attack Before it Starts What is a heart attack? A heart attack is damage or to a part of the heart from severely decreased or lack of blood flow to the heart. Over time, arteries can become narrow from the buildup of fat and cholesterol, which is called plaque. The plaque can rupture causing a blood clot to form. When the blood clot forms, the artery can become severely narrowed or completely blocked, causing a heart attack. Heart attack is the leading cause of in the [place]. 85% of muscle damage occurs within the first 2 hours. Delay in the recognition of heart attack symptoms increases the chances of . Know the early symptoms of a heart attack: Nausea Feeling of fullness in chest Jaw Pain Pain that travels down one or both arms Fatigue/being tired Anxiety Back Pain Chest pressure, squeezing, or discomfort Shortness of breath Sweating, or a cold sweat Feeling of impending doom There are unusual signs of a heart attack, too! Women, the elderly, and diabetics may present with atypical symptoms: Fainting/dizziness Weakness Confusion Risk Factors for a Heart Attack Some heart disease risk factors, such as age and family history, cannot be changed. Others, like smoking and lack of exercise, can be changed. Smoking High Cholesterol High Blood Pressure Family History Obesity Age Gender (Males are at higher risk) Lack of Exercise Diabetes Diet Stress Excessive Alcohol Intake If you or someone you know is experiencing the signs and symptoms of a heart attack, DON???T DELAY. Call immediately and seek help. If someone collapses, perform CPR! Do not attempt to drive if you are having symptoms of heart attack. Hands-Only CPR Why Hands-Only CPR? Hands-Only CPR has been shown to be as effective as conventional CPR for cardiac arrests that occur outside of a hospital. Survival depends on immediately receiving CPR from someone nearby. How do you perform Hands-Only CPR? There are two easy steps: Call if you see a teen or adult collapse Push hard and fast in the center of the chest at a beat of 100 beats per minute. Save a life! 4 WAYS TO GET AHEAD OF SEPSIS SEPSIS is a MEDICAL EMERGENCY. Time matters! Infections put you and your family at risk for a life-threatening condition called sepsis. Sepsis is the body's extreme response to an infection. It is life-threatening, and without timely treatment, sepsis can rapidly lead to tissue damage, organ failure, and . Sepsis happens when an infection you already have-in your skin, lungs, urinary tract or somewhere else-triggers a chain reaction throughout your body. 1 PREVENT INFECTIONS Take good care of chronic conditions. Talk to your doctor about getting the recommended vaccines. 2 PRACTICE GOOD HYGIENE Wash your hands frequently. Keep cuts or open sores clean and covered until they are healed. 3 KNOW THE SYMPTOMS Confusion or disorientation Shortness of breath High heart rate Fever, shivering, or feeling very cold Extreme pain or discomfort Clammy or sweaty skin 4 ACT FAST Get medical care IMMEDIATELY if you suspect sepsis or if you have an infection that is not getting better or is getting worse. To learn more about sepsis and how to prevent infections, visit www.cdc.gov/sepsis. Test Results Laboratory or Other Results This Visit (last charted value for your 01/05/2021 visit) Microbiology 01/05/2021 11:02 AM SARS-CoV-2 (COVID19 PCR): Negative Patient Name:LUPE BLOOM I have received this information and was given the opportunity to ask questions. Patient/Vocational Ed Instructor Name: Patient/Vocational Ed Instructor Signature: Relationship to Patient: Clinician/Hospital Vocational Ed Instructor Signature: Date: documented in this encounter Plan of Treatment Not on file documented as of this encounter Visit Diagnoses Not on filedocumented in this encounter
--- OUTSIDE RECORDS SUMMARY | 2025-05-29 07:33 | XMS_ITS | Encounter Summary ---
Author Organization [employer] ([place], [place], [place], [place], [place]) Address [address] [place] [id number] Care Team Providers Care Electronic Lab Technician Name Role Phone Unavailable Primary Care Provider Unavailabl e Encounter Details Date Type Department Care Team (Late st Contact Info) Description 01/05/2021 Transcribed Document [facility] [place] Medicine [address] [place] [address] ProviderLali MD [address] [place] [address] Social History Tobacco Use Types [...] Conversion Note - Lali ProviderMD - 01/05/2021 1:30 PM CDT [facility] PreOp Summary Primary Physician: DEBRA HENDERSON MD-GAE Finalized Date/Time: 01/05/21 14:11:37 Pt. Name: LUPE BLOOM Barrett Hall/Sex: 1960 Female Med Rec #: [id number] Physician: DEBRA HENDERSON MD-GAE Financial #: [id number] Pt. Type: E [place] [facility] [place] Admit/Disch: 01/05/21 10:51:00 - Institution: [facility] PreOp Case Times Entry 1 In Preop 01/05/21 13:50:00 Ready for Holding n/a Room Patient Ready for 01/05/21 14:11:00 Surgery Patient Out of Preop 01/05/21 14:11:00 Patient Out of n/a Holding Room Finalized By: SHARON Garcia RN Document Signatures Signed By: SHARON Garcia RN 01/05/21 14:11 Electronically signed by Sudha [facility] Conversion Ethologist Cerner at 10/01/2022 8:05 PM CDT documented in this encounter Plan of Treatment Not on file documented as of this encounter Visit Diagnoses Not on filedocumented in this encounter
--- OUTSIDE RECORDS SUMMARY | 2025-05-29 07:33 | XMS_ITS | Encounter Summary ---
Author Organization [employer] ([place], [place], [place], [place], [place]) Address [address] [place] [address] Care Team Providers Care Back Gray Cloth Washer Name Role Phone Unavailable Primary Care Provider Unavailabl e Encounter Details Date Type Department Care Team (Late st Contact Info) Description 01/05/2021 Transcribed Document [facility] [place] [address] [place] [address] ProviderLali MD [address] [place] [address] Social History Tobacco Use Types Packs/Day Years Used Date Smoking Tobacco: Never Assessed Comments Unknown Sex and Gender Information Value Date Recorded Sex Assigned at Female 12/06/2021 8:53 PM CDT Legal Sex Female 8:53 PM CDT Gender Identity Female 12/06/2021 8:53 PM CDT Sexual Orientation Not on file documented as of this encounter Miscellaneous Notes * Cerner Conversion Note - Historical ProviderMD - 01/05/2021 1:57 PM CDT Pre Procedure Adult Entered On: 01/05/2021 14:01 EDT Performed On: 01/05/2021 13:57 EDT by SHARON Garcia RN Height and Weight, Clinical Dosing Height Source : Stated Height Entry Format : [place] Height, Feet : 0 ft(Converted to: 0 cm, 0 Inch) Height, Inches : 64 Inch(Converted to: 5 ft 4 Inch, 162.56 cm) Clinical Height : 162.56 cm Weight Source : Standing scale Weight Entry Format : [place] Clinical Dosing Weight : 72.18 kg Weight, Pounds : 158.8 lb Body Surface Area (BSA) : 1.77 m2 Body Mass Index : 27.3 kg/m2 (HI) [place] Body Weight : 54 kg SHARON Garcia RN - 01/05/2021 13:57 EDT Health Histories Smoking Status : Never (less than 100 in lifetime; none in last 30 days) Smokeless Tobacco Status : Never SHARON Garcia RN - 01/05/2021 13:57 EDT Social History (As Of: 01/05/2021 14:01:12 EDT) Tobacco: Never (less than 100 in lifetime) Smoking Status. Never Smokeless Tobacco Status. (Last Updated: 01/05/2021 13:58:07 EDT by SHARON Garcia RN) Alcohol: Alcohol Use History No. (Last Updated: 01/05/2021 13:58:12 EDT by SHARON Garcia RN) Substance Abuse: Drug Use Hx: No. Use in Last 12 Months: No. (Last Updated: 01/05/2021 13:58:16 EDT by SHARON Garcia RN) Nutrition/Health: Caffeine intake amount: 1 cup. (Last Updated: 01/05/2021 13:58:23 EDT by SHARON Garcia RN) Infectious Disease History Has the patient ever been tested for COVID-19? : Yes, Patient stated results Negative Where are the test results? : In EMR Results Date of COVID-19 test known? : Yes Date of COVID-19 Test : 01/05/2021 EDT Does patient have symptoms of COVID-19? : No COVID19 Screening : No Experiencing Infectious Disease Symptoms : No symptoms Physical contact outside [place] in the last 30 days : No Infectious Disease History : Chicken pox/Shingles Tuberculosis Symptoms : None SHARON Garcia RN - 01/05/2021 13:57 EDT COVID19 PreProcedure Screening Is this an Emergent or Add on Procedure? : No Date PreProcedure COVID-19 test known? : Yes Date of PreProcedure COVID-19 : 01/05/2021 EDT Has patient been isolated since the test : Yes Exposed to COVID19 symptoms since test? : No SHARON Garcia RN - 01/05/2021 13:57 EDT Anesthesia/Transfusion History Family History of Anesthesia Reaction : No prior transfusion(s) Transfusion History : Prior anesthesia without reaction Family History of Anesthesia Reaction : None SHARON Garcia RN - 01/05/2021 13:57 EDT Functional Assessment Living Situation : Home Patient Lives With : Spouse Current Home Treatments : None SHARON Garcia RN - 01/05/2021 13:57 EDT [place] Suicide Severity Rating Scale (C-SSRS) CSSRS Past Month Wish to be : No CSSRS Past Month Suicidal Thoughts : No CSSRS Lifetime Suicide Behavior : No Suicide Severity Rating Score : 0 Suicide Severity Rating : No Additional Care Required at this time SHARON Garcia RN - 01/05/2021 13:57 EDT Psychosocial History Currently in Unsafe Situation : No SHARON Garcia RN - 01/05/2021 13:57 EDT Advance Directive Patient has Advance Directive *Q : Yes, Advance Directive not with the patient Advance Directive Type : Living will Copy Advance Directive Verified/on Chart : No SHARON Garcia RN - 01/05/2021 13:57 EDT Teaching/Learning Assessment Barriers To Learning : None evident Individuals Taught : Patient Readiness to Learn : Cooperative Highest Level of Education : Post graduate degree(s) Baseline Knowledge of Topic : Good Readiness to Learn : Explanation SHARON Garcia RN - 01/05/2021 13:57 EDT General Info Want Family/Rep/Phys Notified of Admit : Yes Name/Contact Info Fam/Rep Notified Adm : na Name/Contact Info Physician Notified Adm : Lester Jarvis Emergency Contact #1 : Roni Huerta Emergency Contact #1 Emergency Contact #1 Relationship : spouse Emergency Contact #2 : none Emergency Contact #2 Phone Number : none Emergency Contact #2 Relationship : none Information Obtained From : Patient Primary Language : Vincentian Communication Barrier : None Chemist Helper Needed : No Objects to Sharing Info w Family : No SHARON Garcia RN - 01/05/2021 13:57 EDT Sleep Apnea Risk Assmt Hx of Obstructive Sleep Apnea Diagnosis : No Snore Loudly : No Tired, Fatigued, or Sleepy During Day : Yes Observed Stopping Breathing During Sleep : No Have/Are Being Treated for Hypertension : No BMI Greater Than 35 kg/m2 : No Age over 50 Years Old : Yes Neck Circumference Greater Than 40 cm : No Gender Male : No STOP-BANG Sleep Apnea Risk Level Score : 2 SHARON Garcia RN - 01/05/2021 13:57 EDT Shelton Scale [place] Sensory Perception : No impairment [place] Moisture : Rarely moist [place] Activity : Walks frequently [place] Mobility : No limitation [place] Nutrition : Adequate [place] Friction and Shear : No apparent problem [place] Score : 22 SHARON Garcia RN - 01/05/2021 13:57 EDT Fall Risk Scales ABCs Fall Injury Risk Identification : None GARZA Hx Falls Immediate/Within 3 Months : No Garza Secondary Diagnosis : No GARZA Use of Ambulatory Aid : None GARZA IV Therapy or IV Access : Yes Garza Gait/Transferring : Normal, bedrest, immobile Garza Mental Status : Oriented to own ability Garza Fall Risk Score : 20 GARZA Fall Scale Risk Level : 0-24 Low Risk [place] Fall Interventions : Adequate lighting, Bed in low position, Call device within reach, Frequent orientation to call device, Frequent orientation to surroundings, Hourly comfort/safety rounds, Non-slip footwear, Personal items within reach, Reinforced to call for assistance before getting out of bed, Room free of clutter/spills, Upper side-rails up, Wheels locked, Wires/Cords secured SHARON Garcia RN - 01/05/2021 13:57 EDT Valuables and Belongings Valuables and Belongings : Clothing, Jewelry Clothing : Common streetwear Clothing Disposition : Bedside Jewelry : Ring Jewelry Disposition : With family SHARON Garcia RN - 01/05/2021 13:57 EDT documented in this encounter Plan of Treatment Not on file documented as of this encounter Visit Diagnoses Not on filedocumented in this encounter
--- OUTSIDE RECORDS SUMMARY | 2025-05-29 07:33 | XMS_ITS | Clinical Summary ---
Author Organization [facility] Address [address] [place] [address] Care Team Providers Care Web Press Jogger Name Role Phone Pauline Haynes DO Primary Care Provider Allergies Active Allergy Reactions Criticality Noted Date Comments Hydrocodone Itching,Nausea Only 11/16/2021 Medications busPIRone (BUSPAR) 10 MG tablet Take 1 tablet by mouth 2 (Two) Times a Day. 021 Active propranolol (INDERAL) 10 MG tablet 022 Active oxyCODONE-acetami nophen (PERCOCET) 7.5-325 MG per tablet Take 1 tablet by mouth Every 6 (Six) Hours As Needed. Active dicyclomine (BENTYL) 10 MG capsule Take 1 capsule by mouth As Needed. 025 Active glycopyrrolate (ROBINUL) 2 MG tablet Take 1 tablet by mouth As Needed. 025 Active LORazepam (ATIVAN) 1 MG tablet Take 1 tablet by mouth As Needed for Seizures. Active naloxone (Narcan) 4 MG/0.1ML nasal spray Administer 1 spray into the nostril(s) as directed by provider As Needed. 025 Active Progesterone (PROMETRIUM) 200 MG capsule Take 1 capsule by mouth Daily. 025 Active Probiotic Product (ALIGN PO) Take 1 capsule by mouth Daily. Active Misc Natural Products (IBEROGAST PO) Take 1 capsule by mouth 2 (Two) Times a Day. Active donepezil (ARICEPT) 5 MG tabletIndications :Forgetfulness Take 1 tablet by mouth Every Night. 90 tablet 1 Active Azelastine-Flutic asone 137-50 MCG/ACT suspension 1 spray by Each Nare route 2 (Two) Times a Day. 23 g Active traMADol (ULTRAM) 50 MG tablet Active ondansetron ODT (ZOFRAN-ODT) [address] 1 tablet on the tongue Every 8 (Eight) Hours As Needed for Nausea or Vomiting. 25 tablet Active vitamin D (ERGOCALCIFEROL) 1.25 MG (95606 UT) capsule capsuleIndication s:Vitamin D deficiency Take 1 capsule by mouth 1 (One) Time Per Week. 12 capsule Active cyclobenzaprine (FLEXERIL) 10 MG tablet Take 1 tablet by mouth 3 (Three) Times a Day As Needed for Muscle Spasms. 30 tablet 2 Active traZODone (DESYREL) 50 MG tablet TAKE A HALF TO 1 TABLET BY MOUTH ONCE NIGHTLY NEEDED FOR SLEEP 90 tablet Active DULoxetine (CYMBALTA) 60 MG capsuleIndication s:Anxiety and depression,Fibrom yalgia,Forgetfuln ess,Vitamin D deficiency TAKE 1 CAPSULE BY MOUTH 2 TIMES A DAY 60 capsule 2 Active methylPREDNISolon e (MEDROL) 4 MG dose packIndications:F ibromyalgia Take as directed on package instructions. 21 tablet Active DULoxetine (CYMBALTA) 60 MG capsuleIndication s:Anxiety and depression,Fibrom yalgia,Forgetfuln ess,Vitamin D deficiency Take 1 capsule by mouth 2 (Two) Times a Day. 60 capsule 2 025 2024 Discontinued methylPREDNISolon e (MEDROL) 4 MG dose packIndications:F ibromyalgia Take as directed on package instructions. 21 tablet 025 2024 Discontinued(R eonina) traZODone (DESYREL) 50 MG tablet Take 0.5-1 tablets by mouth At Night As Needed for Sleep. 30 tablet 025 2024 Discontinued Active Problems No known active problems Encounters Date Type Department Care Team Description 05/28/2025 Results Follow-Up [facility] [address] [place] [address] Pauline Haynes DO 05/19/2025 Refill [facility] [address] [place] [address] Pauline Haynes DO Fibromyalgia 05/04/2025 Refill [facility] [address] [place] [address] Pauline Haynes DO Anxiety and depression; Fibromyalgia; Forgetfulness; Vitamin D deficiency 05/04/2025 Refill [facility] [address] [place] [address] Pauline Haynes DO 04/09/2025 Results Follow-Up [facility] [address] [place] [address] Pauline Haynes DO 04/07/2025 Telephone [facility] [address] [place] [address] Pauline Haynes DO New Med Request 04/06/2025 12:00 PM EDT Office Visit [facility] [address] [place] [address] Pauline Haynes DO Medicare welcome exam (Primary Dx); Pap smear for cervical cancer screening; Fibromyalgia; Postmenopausal; Screening for osteoporosis; Vitamin D deficiency; Primary insomnia 04/06/2025 Travel 03/31/2025 Telephone [facility] [address] [place] [address] Pauline Haynes DO CALL BACK REQUEST from Last 3 Months Immunizations Immunization Administration Dates Next Due Arexvy (RSV, Adults 60+ yrs) 04/15/2023 COVID-19 (MODERNA) 12YRS+ (SPIKEVAX) 04/04/2024 COVID-19 (PFIZER) 12YRS+ (COMIRNATY) 03/25/2023 Fluzone >6mos 04/04/2024 Fluzone (or Fluarix & Flulaval for VFC) >6mos ,02/20/2020 Influenza Injectable Mdck Pf Quad 03/26/2023 Influenza Seasonal Injectable 03/14/2021 PCV21 (CAPVAXIVE) 01/05/2025 Shingrix 10/09/2020,05/28/2020 Tdap 01/02/2024 Family History Medical History Relation Name Comments Diabetes Father Heart disease Father Hyperlipidemia Father Hypertension Mother Diabetes Sister Thyroid disease Sister Relation Name Status Comments Father Mother Sister Social History Tobacco Use Types Packs/Day Years [...] Orientation Straight 12/29/2024 12 :44 PM EDT Last Filed Vital Signs Vital Sign Reading Time Taken Comments Blood Pressure 148/82 04/06/2025 11:52 AM EDT Pulse 96 04/06/2025 11:52 AM EDT Temperature 36.2 C (97.1 F) 01/05/2025 2:18 PM EDT Respiratory Rate 16 04/06/2025 11:52 AM EDT Oxygen Saturation 97% 01/05/2025 2:18 PM EDT Inhaled Oxygen Concentration - - Weight 66.2 kg (146 lb) 04/06/2025 11:52 AM EDT Height 160.4 cm (5' 3.15 ) 04/06/2025 11:52 AM E DT Body Mass Index 25.74 04/06/2025 11:52 AM EDT Plan of Treatment Health Maintenance Due Date Last Done Comments COLOGUARD 11/03/2004 COLON CANCER SCREENING 5 YEA R SIGMOIDOSCOPY 11/03/2004 CT COLONOGRAPHY 11/03/2004 FECAL OCCULT BLOOD TEST 11/03/2004 FIT Testing (1 year) 11/03/2004 COVID-19 Vaccine (5 - Mixed Product risk season) 2025 03/31/2025, 04/04/2024, 03/25/2023, Additional history exists LIPID PANEL 01/12/2026 01/12/2025, 08/0 07/2023, 09/11/2022, Additional history exists ANNUAL WELLNESS VISIT 04/06/2026 04/06/2025, 025 DXA SCAN 05/12/2027 05/12/2025 MAMMOGRAM 05/27/2027 05/26/2025, 03/11, 04/20/2022, Additional history exists TDAP/TD VACCINES (2 - Td or Tdap) 01/01/2034 024 COLONOSCOPY 01/05/2035 01/05/2025, 12/09, 08/14/2016, Additional history exists COLORECTAL CANCER SCREENING 01/05/2035 ZOSTER VACCINE Completed 10/09/2020, 05/28/2020 HEPATITIS C SCREENING Completed 01/11/2024, 024 Pneumococcal Vaccine 50+ Completed 01/05/2025 INFLUENZA VACCINE Completed 03/31/2025, , 03/26/2023, Additional history exists Procedures Procedure Name Priority Date/Time Associated Diagnosis Comments SCANNED - MAMMO 05/26/2025 DEXA BONE DENSITY AXIAL Routine 05/12/2025 Screening for osteoporosis Postmenopausal LIQUID-BASED PAP SMEAR, [facility] ([facility]ERRI,[facility]) Routine 04/06/2025 4:01 PM EDT Pap smear for cervical cancer screening LIPID PANEL W/ CHOL/HDL RATIO Routine 01/12/2025 8:32 AM EDT Anxiety and depression Fibromyalgia Forgetfulness Vitamin D deficiency High cholesterol SCANNED - COLONOSCOPY 01/05/2025 from Last 3 Months or Most Recently Relevant to Health Maintenance Results * MAMMO Scan (05/26/2025) Anatomical Region Laterality Modality Other us Pauline Dolores Dallas DO CHART REVIEW TABS Final Result * DEXA Bone Density Axial (05/12/2025) Anatomical Region Laterality Modality Wrist, Hip, L-spine N/A Radiographic Imaging Pauline Haynes DO IMG DXA ORDERABLES Final Re sult * LIQUID-BASED PAP SMEAR, [facility] ([facility]ERRI,[facility]) (04/06/2025 4:01 PM EDT) Pathologist [facility] Reference Lab Report FINAL CANINE DEPUTY CYTOLOGY REPORT ---- DIAGNOSIS: Negative for intraepithelial [...] results can occur. ThinPrep Pap imagined by [employer] (AI assisted system). Screened by MARCELINO BLAND (ASCP) 04/08/2025 11:38 AM EDT [facility] ThinPrep Vial Cervix uteri structure / Unknown Collection / Unknown 04/06/2025 4:01 PM EDT 04/06/2025 4:02 PM EDT Pauline Haynes DO PATHOLOGY/CYTOLOGY ORDERABL ES Final Result [facility]
[address] [place] [address], [place] [phone] * (ABNORMAL) Lipid Panel With / Chol / HDL Ratio (01/12/2025 8:32 AM EDT) Total Cholesterol 172 0 - 200 mg/dL [facility] Comment: Cholesterol Reference Ranges (U.S. Department of Health and Human Services ATP III Classifications) Desirable <200 mg/dL Borderline High 200-239 mg/dL High Risk >240 mg/dL Triglyceride Reference Ranges (U.S. Department of Health and Human Services ATP III Classifications) Normal <150 mg/dL Borderline High 150-199 mg/dL High 200-499 mg/dL Very High >500 mg/dL HDL Reference Ranges (U.S. Department of Health and Human Services ATP III Classifications) Low <40 mg/dl (major risk factor for CHD) High >60 mg/dl ('negative' risk factor for CHD) LDL Reference Ranges (U.S. Department of Health and Human Services ATP III Classifications) Optimal <100 mg/dL Near Optimal 100-129 mg/dL Borderline High 130-159 mg/dL High 160-189 mg/dL Very High >189 mg/dL LDL is calculated using the NIH LDL-C calculation. Triglycerides 76 0 - 150 mg/dL [facility] HDL Cholesterol 52 40 - 60 mg/dL [facility] VLDL Cholesterol Zaira 14 5 - 40 mg/dL [facility] LDL Chol Calc (NIH) 106(H) 0 - 100 mg/dL [facility] Chol/HDL Ratio 3.31 [facility] Blood 01/12/2025 8:32 AM EDT 01/12/2025 Narrative [facility] [employer] (AMBULATORY) - 01/13/2025 8:11 AM EDT Performed at: [address] [place] [id number] Vegetable Washing Machine Operator: Adam Concepcion MD, Phone: [phone] Patient Fasting: Y us Pauline Haynes DO LAB BLOOD ORDERABLES Final Result [facility] [employer] [facility] (AMBULATORY) [address] [place] [address], [place] [phone] [facility] [address] [place] [address], [place] [phone] * Colonoscopy, Scan (01/05/2025) Pauline Haynes DO CHART REVIEW TABS Final Result from Last 3 Months or Most Recently Relevant to Health Maintenance Insurance [facility] Medicare [employer] PPO Care Teams Web Press Jogger Relationship Specialty Start Date End Date Pauline Haynes DO [facility] [place] [address] PCP - General Family Medicine 01/05/25
--- OUTSIDE RECORDS SUMMARY | 2025-05-29 07:33 | XMS_ITS | Continuity of Care Document ---
Author Organization [facility] PATRICIA Martínez HEBRON Address [address] [place] [address] Care Team Providers Care Dean Of Women Name Role Phone ISABELLA GARNETT Primary Care Provider Assessment No assessment recorded. Plan of Treatment Reminders Order Date Submit Date Provider Last Modified By Organization Details Last Modified Time Details Appointments None record ed. Lab None record ed. Referral None record ed. Procedures None record ed. Surgeries None record ed. Imaging None record ed. Medication Orders None record ed. Patient TargetsNo targets recorded. Patient InstructionsNo instructions recorded. Reason for Referral None Reported. Medical Equipment None Reported. Allergies Allergen ID Allergen Name Allergen Category Reaction Reaction Severity Criticality Documentation Date Start Date Code Code System Note Provider Name and Address Organization Details Recorded Time [id number] hydrocodo ne Not available Not available Not available Not available 02/28/2024 5489 RxNorm Nevin Garcia [facility] 4 10:24:17 Medications Name Sig Start Date [...] Tobacco Smoking Status Never Smoker Nevin Garcia [facility] 02/28/2024 10:26:18 Sunscreen Use? Yes [email or web address] Informatio n not available 02/28/2024 Tanning Bed Use No [email or web address] Informati on not available 02/28/2024 What Was The Date Of Your Most Recent Tobacco Screening? 03/25/2025 [email or web address] Information not available 03/25/2025 Has Tobacco Cessation Counseling Been Provided? No [email or web address] Information not available 02/28/2024 Sex: Unknown Functional Status Question Answer Note LastModified by Organizat ion Details LastModified Time Do you use any illicit or recreational drugs? No [email or web address] Information not available 02/28/2024 Do you or have you ever used any other forms of tobacco or nicotine? No [email or web address] Information not available 02/28/2024 What is your level of alcohol consumption? None [email or web address] Information not available 02/28/2024 Mental Status None recorded. Family History Relationship Description Onset Age of this Age Resolved Age Notes LastModified by Organization Details LastModified Time Father No current problems or disability [email or web address] Not available 02/09 10:26:27 Mother No current problems or disability [email or web address] Not available 02/09 10:26:27 Medical History No medical history recorded. Gynecological HistoryNo gynecological history recorded. Obstetrics History GPAL:G 0 P 0 0 0 0 Past Encounters Encounter ID Performer Location Encounter Start Date Encounter Closed Date Diagnosis/Indication Diagnosis SNOMED-CT Code Diagnosis ICD10 Code Diagnosis IMO Codes Diagnosis Note [id number] [facility]EL [facility] [address] [place] [address] 03/25/2025 10:14:04 03/25/2025 12:15:33 Solar degeneration 15261093 L57.8 766 The nature of the diagnosis was discussed. Pt to use 5FU on the nose this Winter, she already has Rx at home, twice per day for two weeks. (She has done in the past without much of a reaction.I f pt needs more, she can call at ext [phone]. History of malignant neoplasm of skin excluding melanoma 311356717 Z85.504 [id number] The scar is clear with no evidence of recurrence . (MOHs was done ~ [address] Cueva)Cont. to monitor for any changes.Pn t is looking to have scar evaluated with plastic surgeon. I rec Dr. Tee. Health Concerns Section Related Observation LastModified by Organization Detai ls LastModified Time None Recorded Concern Status LastModified by Organization Details LastModified Time None Recorded Payers Encounter Date Sequence Insurance Name Policy Number Policy Raza Covered Member ID Raza Member ID Guarantor Name 03/25/2025 1 [employer] (MEDICARE REPLACEMENT/ ADVANTAGE - PPO) Lupe Grewal [id number] Lupe Grewal Notes Date Note Type Note Provider Name and Address Organization Details Recorded Time 03/25/2025 text/html ROS as noted in the HPI area of concernlocation : noseduration: over a yeartx: 5FU in Jul 2024, MOHsreports: spot used to have a bubble on it and pt is worried it could be a BCC NOEL DE LEÓN [address] [place], [address], [facility] 03/25/2025 13:48:03 OBGyn Episode No OBEpisode recorded.
--- OUTSIDE RECORDS SUMMARY | 2025-05-29 07:33 | XMS_ITS | Clinical Summary ---
Author Organization [employer] ([place], [place], [place], [place], [place]) Address [address] [place] [id number] Care Team Providers Care Medical Equipment Repairer Name Role Phone Unavailable Primary Care Provider [...]
--- NOTE | 2025-05-29 08:00 | FL_ITS ---
FINAL REPORT CLINICAL HISTORY: LUQ pain/epigastric pain/constipation 2295.93 dap 3.00 fluoro time FINDINGS: AIR CONTRAST UPPER GI TECHNIQUE: Double-contrast exam The esophagus demonstrates no morphologic abnormalities. No mucosal defects are seen and motility appears normal. The stomach is of normal size, shape and position. No gastric filling defects are seen. The duodenal bulb and sweep appear unremarkable. Small duodenal diverticulum was present. Few minimal episodes of gastroesophageal reflux observed. IMPRESSION: Authenticated and ERN
[2025-05-29] MEDS: BARIUM SULFATE(E-Z-AC);750ML BOTTLE 750 ML PO (09:08)
[2025-05-29] MEDS: BARIUM SULFATE (E-Z-HD 340GM);135ML BOTTLE 135 ML PO (09:08)
[2025-05-29] MEDS: DIATRIZOATE MEGLUMINE(GASTROGRAFIN) 66%-10% 120ML 120 ML PO (09:08)
[2025-05-29] MEDS: E-Z-GASII EFFERVESCENT GRANULES;1PK 1 EACH PO (09:09)
== END 2025-05-29 23:59 | disposition home or self-care (01) ==
LOC: RAD 07:30
PROVIDERS: PCP Family Medicine; Visit Provider Nurse Practitioner Family
DX: K57.10 Diverticulosis of small intestine without perforation or abscess without bleeding (principal); K21.9 Gastro-esophageal reflux disease without esophagitis; K59.00 Constipation, unspecified; R10.12 Left upper quadrant pain; R10.13 Epigastric pain
CPT/HCPCS: 74246; 74248; Q9963